=== PATIENT | female | born 1990 | race Caucasian/White ===

== ENCOUNTER 2018-12-31 10:47 | Emergency (ER) | payer BC ==
[2018-12-31] MEDS ORDERED: CYCLOBENZAPRINE 10 MG TAB ONE (12:17)
[2018-12-31] MEDS ORDERED: KETOROLAC 30 MG/ML INJ ONE (12:17)
[2018-12-31 12:48] LABS: Urine Amorphous Sediment 2+ /HPF (NONE SEEN); Urine Bacteria <20 /HPF (<20); Urine Culture Reflex Order NOT NEEDED; Urine Mucus LIGHT /HPF (NONE SEEN); Urine RBC <5 /HPF (NONE SEEN)
[2018-12-31 12:51] LABS: Urine Blood NEGATIVE (NEG); Urine Glucose NEGATIVE (NEG); Urine Protein TRACE (NEG); Urine pH 7.5 (5.0-7.0)
--- NOTE | 2018-12-31 13:06 | ER ---
Nurse's Notes [facility] Name: Zina Magana Age: 28 yrs Sex: Female : 1990 Arrival Date: 12/31/2018 Time: 10:47 Bed 26 Private MD: Diagnosis: Low back pain Presentation: 12/31 11:02 Presenting complaint: Patient states: Pt c/o mid back and low back pain x months. Pt ss reports she was supposed to have physical therapy, MRI and see pain management, but she is unable to afford it. PAtient reports that the pain has just been getting worse. Transition of care: patient was not received from another setting of care. Onset of symptoms is unknown. Risk Assessment: Do you want to hurt yourself or someone else? Patient reports no desire to harm self or others. Initial Sepsis Screen: Does the patient meet any 2 criteria? No. Patient's initial sepsis screen is negative. Does the patient have a suspected source of infection? No. Patient's initial sepsis screen is negative. Care prior to arrival: None. 11:02 Method Of Arrival: Wheelchair ss 11:02 Acuity: CLARICE 4 ss Historical: - Allergies: 11:04 No Known Allergies; ss - Home Meds: 11:04 None [Active]; ss - PMHx: 11:04 None; ss - PSHx: 11:04 None; ss - Immunization history:: Adult Immunizations up to date. - Social history:: Smoking status: Patient/guardian denies using tobacco. - Ebola Screening: : Patient denies exposure to infectious person Patient denies travel to an Ebola-affected area in the 21 days before illness onset. Screenin:57 Abuse screen: Denies threats or abuse. Denies injuries from another. Nutritional mg2 screening: No deficits noted. Tuberculosis screening: No symptoms or risk factors identified. Fall Risk None identified. Assessment: 12:15 General: Appears in no apparent distress. uncomfortable, Behavior is calm, cooperative, aj appropriate for age. Pain: Complains of pain in low back area. Neuro: Level of Consciousness is awake, alert, obeys commands, Oriented to person, place, time, situation, Appropriate for age. Respiratory: Airway is patent Respiratory effort is even, unlabored, Respiratory pattern is regular, symmetrical. Derm: Skin is intact, is healthy with good turgor, Skin is pink, warm \T\ dry. normal. Musculoskeletal: Reports pain in low back area. 12:56 Reassessment: patient verbalizes pain. provider informed. mg2 Vital Signs: 11:04 BP 109 / 71; Pulse 73; Resp 15; Temp 98.3(O); Pulse Ox 95% on R/A; Weight 99.79 kg; ss Height 5 ft. 2 in. (157.48 cm); Pain 9/10; 11:04 Body Mass Index 40.24 (99.79 kg, 157.48 cm) ED Course: 10:47 Patient arrived in ED. as 11:04 Triage completed. ss 11:04 Arm band placed on right wrist. ss 11:07 Mariam Cazares [facility]-C [facility]. snw 11:07 Karson Olmstead MD is Attending Physician. snw 11:58 Jenn Mccain, RN is Primary Nurse. aj 12:16 Urine Microscopic Only Sent. lt1 12:59 Patient has correct armband on for positive identification. mg2 13:51 No provider procedures requiring assistance completed. Patient did not have IV access aj during this emergency room visit. intact, bleeding controlled, No redness/swelling at site. Pressure dressing applied. Administered Medications: 12:04 Drug: TORadol 30 mg Route: IM; Site: right gluteus; aj 13:10 Follow up: Response: No adverse reaction; Pain is unchanged, physician notified mg2 12:05 Drug: Flexeril 10 mg Route: PO; aj 13:10 Follow up: Response: No adverse reaction; Pain is unchanged, physician notified mg2 13:10 Drug: Tylenol 1000 mg Route: PO; mg2 13:52 Follow up: Response: No adverse reaction aj Outcome: 13:05 Discharge ordered by . snw 13:51 Discharged to home ambulatory, with family. aj 13:51 Condition: good 13:51 Discharge instructions given to patient, Instructed on discharge instructions, follow up and referral plans. medication usage, Demonstrated understanding of instructions, follow-up care, medications, Prescriptions given X 2. 13:55 Patient left the ED. aj Signatures: Jenn Mccain RN RN Mariam Cazares FNP-C FNP-CsnToya Pope as Shira Hatfield RN RN Gardose, Alexy, RN RN mg2 Hernandez, Monet lt1
--- NOTE | 2018-12-31 13:06 | EDPHYS ---
Physician Documentation [facility] Name: Zina Magana Age: 28 yrs Sex: Female : 1990 Arrival Date: 12/31/2018 Time: 10:47 Bed 26 Private MD: ED Physician Karson Olmstead HPI: 12/31 12:30 This 28 yrs old Female presents to ER via Wheelchair with complaints of Back snw Pain. 12:30 The patient presents with pain that is chronic. The symptoms are located in the low snw back. Onset: The symptoms/episode began/occurred gradually, 2 month(s) ago, and became worse today, and became persistent. The pain does not radiate. Associated signs and symptoms: Pertinent negatives: abdominal pain, chest pain, constipation, vomiting, weakness. The problem was sustained when lifting patient. Severity of symptoms: At their worst the symptoms were moderate, severe. The patient has experienced similar episodes in the past, chronically. saw PCP and was to have MRI, unable to have second to cost.. no fever, no incontinence. Historical: - Allergies: 11:04 No Known Allergies; ss - Home Meds: 11:04 None [Active]; ss - PMHx: 11:04 None; ss - PSHx: 11:04 None; ss - Immunization history:: Adult Immunizations up to date. - Social history:: Smoking status: Patient/guardian denies using tobacco. - Ebola Screening: : Patient denies exposure to infectious person Patient denies travel to an Ebola-affected area in the 21 days before illness onset. ROS: 12:30 Constitutional: Negative for fever, chills, and weight loss, Eyes: Negative for injury, snw pain, redness, and discharge, ENT: Negative for injury, pain, and discharge, Neck: Negative for injury, pain, and swelling, Cardiovascular: Negative for chest pain, palpitations, and edema, Respiratory: Negative for shortness of breath, cough, wheezing, and pleuritic chest pain, Abdomen/GI: Negative for abdominal pain, nausea, vomiting, diarrhea, and constipation, : Negative for injury, bleeding, discharge, and swelling, MS/Extremity: Negative for injury and deformity, Skin: Negative for injury, rash, and discoloration, Neuro: Negative for headache, weakness, numbness, tingling, and seizure. 12:30 Back: Positive for decreased range of motion, pain at rest, pain with movement, of the low back area. Exam: 12:30 Constitutional: This is a well developed, well nourished patient who is awake, alert, snw and in no acute distress. Head/Face: Normocephalic, atraumatic. Eyes: Pupils equal round and reactive to light, extra-ocular motions intact. Lids and lashes normal. Conjunctiva and sclera are non-icteric and not injected. Cornea within normal limits. Periorbital areas with no swelling, redness, or edema. ENT: Nares patent. No nasal discharge, no septal abnormalities noted. Tympanic membranes are normal and external auditory canals are clear. Oropharynx with no redness, swelling, or masses, exudates, or evidence of obstruction, uvula midline. Mucous membranes moist. Neck: Trachea midline, no thyromegaly or masses palpated, and no cervical lymphadenopathy. Supple, full range of motion without nuchal rigidity, or vertebral point tenderness. No Meningismus. Chest/axilla: Normal chest wall appearance and motion. Nontender with no deformity. No lesions are appreciated. Cardiovascular: Regular rate and rhythm with a normal S1 and S2. No gallops, murmurs, or rubs. Normal PMI, no JVD. No pulse deficits. Respiratory: Lungs have equal breath sounds bilaterally, clear to auscultation and percussion. No rales, rhonchi or wheezes noted. No increased work of breathing, no retractions or nasal flaring. Abdomen/GI: Soft, non-tender, with normal bowel sounds. No distension or tympany. No guarding or rebound. No evidence of tenderness throughout. Skin: Warm, dry with normal turgor. Normal color with no rashes, no lesions, and no evidence of cellulitis. MS/ Extremity: Pulses equal, no cyanosis. Neurovascular intact. Full, normal range of motion. Neuro: Awake and alert, GCS 15, oriented to person, place, time, and situation. Cranial nerves II-XII grossly intact. Motor strength 5/5 in all extremities. Sensory grossly intact. Cerebellar exam normal. Normal gait. Psych: Awake, alert, with orientation to person, place and time. Behavior, mood, and affect are within normal limits. 12:30 Back: pain, that is moderate, of the low back area, ROM is painful, with all movement, CVA tenderness, is absent, muscle spasm, is appreciated in the low back area. Vital Signs: 11:04 BP 109 / 71; Pulse 73; Resp 15; Temp 98.3(O); Pulse Ox 95% on R/A; Weight 99.79 kg; ss Height 5 ft. 2 in. (157.48 cm); Pain 9/10; 11:04 Body Mass Index 40.24 (99.79 kg, 157.48 cm) ss MDM: 12:12 Patient medically screened. snw 13:06 Data reviewed: vital signs, nurses notes. Data interpreted: Pulse oximetry: on room air snw is 95 %. Interpretation: acceptable. Counseling: I had a detailed discussion with the patient and/or guardian regarding: the historical points, exam findings, and any diagnostic results supporting the discharge/admit diagnosis, lab results, the need for outpatient follow up, to return to the emergency department if symptoms worsen or persist or if there are any questions or concerns that arise at home. Special discussion: Based on the history and exam findings, there is no indication for further emergent testing or inpatient evaluation. I discussed with the patient/guardian the need to see the primary care provider for further evaluation of the symptoms. 12/31 11:06 Order name: Urine Microscopic Only; Complete Time: 12:53 snw 12/31 12:22 Order name: Urine Dipstick--Ancillary (enter results); Complete Time: 13:01 bd 12/31 12:22 Order name: Urine --Ancillary (enter results); Complete Time: 13:01 bd 12/31 11:06 Order name: Urine Test (obtain specimen); Complete Time: 12:16 snw 12/31 11:06 Order name: Urine Dipstick-Ancillary (obtain specimen); Complete Time: 12:16 snw Administered Medications: 12:04 Drug: TORadol 30 mg Route: IM; Site: right gluteus; aj 13:10 Follow up: Response: No adverse reaction; Pain is unchanged, physician notified mg2 12:05 Drug: Flexeril 10 mg Route: PO; aj 13:10 Follow up: Response: No adverse reaction; Pain is unchanged, physician notified mg2 13:10 Drug: Tylenol 1000 mg Route: PO; mg2 13:52 Follow up: Response: No adverse reaction aj Disposition: 16:58 Co-signature as Attending Physician, Karson Olmstead MD I agree with the assessment and kdr plan of care. Disposition: 12/31/18 13:05 Discharged to Home. Impression: Low back pain. - Condition is Stable. - Discharge Instructions: Back Pain, Adult, Chronic Back Pain, Musculoskeletal Pain, Back Injury Prevention, Niri-ui-Usfe, Back Exercises, Uzza-qn-Uxph, Cryotherapy, Rehydration, Adult, Heat Therapy. - Prescriptions for Motrin IB 200 mg Oral Tablet - take 2 tablet by ORAL route every 6 hours As needed as needed with food; 40 tablet. orphenadrine citrate 100 mg Oral Tablet Sustained Release - take 1 tablet by ORAL route 2 times per day As needed; 20 tablet. - Work release form, Medication Reconciliation Form, Thank You Letter, Antibiotic Education, Prescription Opioid Use form. - Follow up: Private Physician; When: 1 - 2 days; Reason: Recheck today's complaints, Continuance of care, Re-evaluation by your physician. Follow up: Emergency Department; When: As needed; Reason: Worsening of condition. Signatures: Dispatcher [employer] EDJenn Corley, RN RN Karson Smalls MD MD [facility] Mariam Cazares, REPAIRER ART OBJECTS-C REPAIRER ART OBJECTS-Shira Sands RN RN Alexy Fishman RN RN mg2 Corrections: (The following items were deleted from the chart) 13:55 13:05 12/31/2018 13:05 Discharged to Home. Impression: Low back pain. Condition is aj Stable. Forms are Medication Reconciliation Form, Thank You Letter, Antibiotic Education, Prescription Opioid Use. Follow up: Private Physician; When: 1 - 2 days; Reason: Recheck today's complaints, Continuance of care, Re-evaluation by your physician. Follow up: Emergency Department; When: As needed; Reason: Worsening of condition. snw
[2018-12-31] MEDS ORDERED: ACETAMINOPHEN 500 MG TAB ONE (13:24)
== END 2018-12-31 13:55 | disposition home or self-care (01) ==
LOC: ER 10:47
DX: M54.5 Low back pain (principal)
CPT/HCPCS: 81003; 81015; 81025; 96372; 99283

== ENCOUNTER 2019-06-28 17:50 | Emergency (ER) | payer BC ==
--- OUTSIDE RECORDS SUMMARY | 2019-06-28 17:51 | XMS REPORT ---
:1990 [facility] Address [address] [place] [address] Dr. Tong [address] [place] [id number] Care Team Providers Name Role Phone Unavailable Unavailable Unavailable Problems This patient has no known problems. Allergies, Adverse Reactions, Alerts This patient has no known allergies or adverse reactions. Medications This patient has no known medications.
--- NOTE | 2019-06-28 20:42 | EDPHYS ---
Physician Documentation [facility] Name: Zina Magana Age: 29 yrs Sex: Female : 1990 Arrival Date: 06/28/2019 Time: 17:59 Bed 12 Private MD: None, None ED Physician Torin Reno HPI: 06/28 19:32 This 29 yrs old Female presents to ER via Ambulatory with complaints of jmm Cough, Chest Pain. 19:32 The patient or guardian reports cough, described as moderate. Onset: The jmm symptoms/episode began/occurred gradually, 3 day(s) ago. Modifying factors: The symptoms are alleviated by nothing, the symptoms are aggravated by nothing. Associated signs and symptoms: Pertinent positives: sore throat, Pertinent negatives: fever. This is a 29 year old female with a history of hypothyroidism that presents to the ED with complaints of cough, sore throat for the past 3 days. Denies fever. . CHANGE OVER: 18:39 LMP 20147 Historical: - Allergies: 18:39 No Known Allergies; jl7 - Home Meds: 18:39 levothyroxine oral [Active]; jl7 - PMHx: 18:39 Hypothyroidism; jl7 - PSHx: 18:39 None; jl7 - Immunization history:: Adult Immunizations up to date. - Social history:: Smoking status: Patient denies any tobacco usage or history of. - Ebola Screening: : No symptoms or risks identified at this time. ROS: 19:32 Constitutional: Negative for fever, chills, and weight loss, Cardiovascular: Negative jmm for chest pain, palpitations, and edema. 19:32 ENT: Positive for sore throat. 19:32 Respiratory: Positive for cough. 19:32 All other systems are negative. Exam: 19:32 Constitutional: This is a well developed, well nourished patient who is awake, alert, jmm and in no acute distress. Head/Face: atraumatic. Eyes: EOMI, no conjunctival erythema appreciated ENT: Moist Mucus Membranes Neck: Trachea midline, Supple Chest/axilla: Normal chest wall appearance and motion. Cardiovascular: Regular rate and rhythm. No edema appreciated Respiratory: Normal respirations, no respiratory distress appreciated Abdomen/GI: Non distended, soft Back: Normal ROM 19:32 Skin: General appearance color normal MS/ Extremity: Moves all extremities, no obvious deformities appreciated, no edema noted to the lower extremities Neuro: Awake and alert, normal gait Psych: Behavior is normal, Mood is normal, Patient is cooperative and pleasant 19:32 ENT: Posterior pharynx: erythema, that is moderate. Vital Signs: 18:39 BP 136 / 94; Pulse 85; Resp 19 S; Temp 98.3(O); Pulse Ox 100% on R/A; Weight 104.33 kg jl7 (R); Height 5 ft. 2 in. (157.48 cm) (R); Pain 8/10; 20:57 BP 122 / 83; Pulse 87; Resp 18; Temp 98.5; Pulse Ox 99% on R/A; Pain 5/10; aa1 18:39 Body Mass Index 42.07 (104.33 kg, 157.48 cm) jl7 MDM: 19:14 Patient medically screened. papi 20:40 Data reviewed: vital signs, nurses notes. Counseling: I had a detailed discussion with radha the patient and/or guardian regarding: the historical points, exam findings, and any diagnostic results supporting the discharge/admit diagnosis, lab results, the need for outpatient follow up, to return to the emergency department if symptoms worsen or persist or if there are any questions or concerns that arise at home. ED course: Patient is alert and non toxic in appearance in the ED. patient advised to follow up with pcp and otherwise given strict return precautions. patient understood and agrees with the plan of care. . 06/28 19:31 Order name: Flu; Complete Time: 20:32 [facility] 06/28 19:31 Order name: Strep; Complete Time: 20:32 [facility] 06/28 20:16 Order name: Throat Culture EDMS Administered Medications: No medications were administered Disposition: 06/29 10:05 Co-signature as Attending Physician, Torin Reno MD I agree with the assessment and papi plan of care. Disposition: 06/28/19 20:41 Discharged to Home. Impression: Acute pharyngitis, Acute bronchitis. - Condition is Stable. - Discharge Instructions: Acute Bronchitis, Adult, Pharyngitis. - Prescriptions for Prednisone 20 mg Oral Tablet - take 3 tablet by ORAL route once daily for 5 days; 15 tablet. Zithromax Z- Joe 250 mg Oral Tablet - take 1 tablet by ORAL route as directed for 5 days Day 1 - take two (2) tablets one time. Day 2, 3, 4 , 5 take one (1) tablet once daily.; 6 tablet. Albuterol Sulfate 90 mcg/actuation - inhale 1-2 puff by INHALATION route every 4-6 hours; 1 Inhaler. - Work release form, Medication Reconciliation Form, Thank You Letter, Antibiotic Education, Prescription Opioid Use form. - Follow up: Private Physician; When: 2 - 3 days; Reason: Recheck today's complaints, Continuance of care, Re-evaluation by your physician. Signatures: Dispatcher [employer] EDMary Lou Diaz RN RN aa1 Torin Reno MD MD cha Mickail, Joel, PA PA jmm Leal, Jahala, RN RN jl7 Corrections: (The following items were deleted from the chart) 06/28 20:58 20:41 06/28/2019 20:41 Discharged to Home. Impression: Acute pharyngitis; Acute aa1 bronchitis. Condition is Stable. Forms are Medication Reconciliation Form, Thank You Letter, Antibiotic Education, Prescription Opioid Use. Follow up: Private Physician; When: 2 - 3 days; Reason: Recheck today's complaints, Continuance of care, Re-evaluation by your physician. george
--- NOTE | 2019-06-28 20:42 | ER ---
Nurse's Notes [facility] Name: Zina Magana Age: 29 yrs Sex: Female : 1990 Arrival Date: 06/28/2019 Time: 17:59 Bed 12 Private MD: None, None Diagnosis: Acute pharyngitis;Acute bronchitis Presentation: 06/28 18:37 Presenting complaint: Patient states: Productive cough x 1 days, reports chest soreness jl7 from coughing, denies fever, denies N/V/D. Transition of care: patient was not received from another setting of care. Onset of symptoms was June 27, 2019. Risk Assessment: Do you want to hurt yourself or someone else? Patient reports no desire to harm self or others. Initial Sepsis Screen: Does the patient meet any 2 criteria? No. Patient's initial sepsis screen is negative. Does the patient have a suspected source of infection? No. Patient's initial sepsis screen is negative. Care prior to arrival: None. 18:37 Method Of Arrival: Ambulatory [facility] 18:37 Acuity: CLARICE 4 jl7 Triage Assessment: 18:39 General: Appears in no apparent distress. uncomfortable, Behavior is calm, cooperative, jl7 appropriate for age. Pain: Complains of pain in chest Pain does not radiate. Pain currently is 8 out of 10 on a pain scale. Quality of pain is described as sore. Cardiovascular: Patient's skin is warm and dry. Rhythm is regular. 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 - Social history:: Smoking status: Patient denies any tobacco usage or history of. - Ebola Screening: : No symptoms or risks identified at this time. Screenin:15 Abuse screen: Denies threats or abuse. Denies injuries from another. Nutritional aa1 screening: No deficits noted. Tuberculosis screening: No symptoms or risk factors identified. Fall Risk None identified. Assessment: 19:15 General: Appears in no apparent distress. comfortable, Behavior is calm, cooperative, aa1 appropriate for age. Pain: Complains of pain in chest Quality of pain is described as aching, Pain began 1 day ago. Aggravated by cough. Neuro: Level of Consciousness is awake, alert, obeys commands, Oriented to person, place, time, situation, Moves all extremities. Full function Gait is steady, Speech is normal. Respiratory: Airway is patent Respiratory effort is even, unlabored, Respiratory pattern is regular, symmetrical. Respiratory: Reports cough that is non-productive, dry, pain with cough Breath sounds are clear bilaterally. GI: No signs and/or symptoms were reported involving the gastrointestinal system. : No signs and/or symptoms were reported regarding the genitourinary system. EENT: No signs and/or symptoms were reported regarding the EENT system. Derm: Skin is intact, is healthy with good turgor, Skin is pink, warm \T\ dry. Musculoskeletal: Capillary refill < 3 seconds. 20:57 Reassessment: Patient appears in no apparent distress at this time. Patient is alert, aa1 oriented x 3, equal unlabored respirations, skin warm/dry/pink. Discussed d/c \T\ f/u instructions with pt; denies questions or concerns at this time. Ambulatory to lobby with steady gait. Vital Signs: 18:39 BP 136 / 94; Pulse 85; Resp 19 S; Temp 98.3(O); Pulse Ox 100% on R/A; Weight 104.33 kg jl7 (R); Height 5 ft. 2 in. (157.48 cm) (R); Pain 8/10; 20:57 BP 122 / 83; Pulse 87; Resp 18; Temp 98.5; Pulse Ox 99% on R/A; Pain 5/10; aa1 18:39 Body Mass Index 42.07 (104.33 kg, 157.48 cm) jl7 ED Course: 17:59 Patient arrived in ED. mr 18:00 None, None is Private Physician. mr 18:39 Triage completed. jl7 18:39 Arm band placed on right wrist. jl7 19:11 Mir Tse PA is PHCP. keiry 19:12 Navid Lofton MD is Attending Physician. keiry 19:14 Attending Physician role handed off by Navid Lofton MD papi 19:14 Torin Reno MD is Attending Physician. [facility] 19:15 Patient has correct armband on for positive identification. Call light in reach. aa1 19:15 Pulse ox on. NIBP on. aa1 19:15 Patient maintains SpO2 saturation greater than 95% on room air. aa1 19:48 Mary Lou Gamble, RN is Primary Nurse. aa1 19:50 Flu and/or RSV swab sent to lab. Strep swab sent to lab. aa1 20:57 No provider procedures requiring assistance completed. Patient did not have IV access aa1 during this emergency room visit. Administered Medications: No medications were administered Outcome: 20:41 Discharge ordered by . radha 20:57 Discharged to home ambulatory, with family. aa1 20:57 Condition: good 20:57 Discharge instructions given to patient, family, Instructed on discharge instructions, follow up and referral plans. medication usage, Demonstrated understanding of instructions, follow-up care, medications, Prescriptions given X 3. 20:58 Patient left the ED. aa1 Signatures: Mary Lou Gamble, RN RN Torin Hansen MD MD cha Mickail, Joel, PA PA Lakisha Araiza Jahala, RN RN jl7
[2019-06-28 21:37] VITALS: BP 122/83; TEMP 98.5; O2SAT 99
== END 2019-06-28 20:58 | disposition home or self-care (01) ==
LOC: ER 17:50
DX: J40 Bronchitis, not specified as acute or chronic (principal); J02.9 Acute pharyngitis, unspecified; E03.9 Hypothyroidism, unspecified
CPT/HCPCS: 87070; 87081; 87804; 99284

== ENCOUNTER 2020-01-11 19:50 | Emergency (ER) | payer BC ==
--- OUTSIDE RECORDS SUMMARY | 2020-01-11 19:52 | XMS REPORT | Continuity of Care Document ---
:[address] [facility] Address [address] [place] [address] Dr. Tong [address] [place] [id number] Care Team Providers Name Role Phone Unavailable Unavailable Unavailable Problems This patient has no known problems. Allergies, Adverse Reactions, Alerts This patient has no known allergies or adverse reactions. Medications This patient has no known medications. Procedures This patient has no known procedures. Results This patient has no known results.
[2020-01-11] MEDS ORDERED: ACETAMINOPHEN 500 MG TAB ONE (21:22)
[2020-01-11 21:35] LABS: Urine Blood NEGATIVE (NEG); Urine Glucose NEGATIVE (NEG); Urine Protein NEGATIVE (NEG); Urine pH 6.5 (5.0-7.0)
--- NOTE | 2020-01-11 23:11 | ER ---
Nurse's Notes [facility] Name: Zina Magana Age: 29 yrs Sex: Female : 1990 Arrival Date: 01/11/2020 Time: 19:52 Bed 15 Private MD: Diagnosis: Acute sinusitis Presentation: 01/10 20:02 Chief complaint: Patient states: Chills, POWELL, sinus pain, lightheaded, sore throat for 3 ll1 days. No fever at home. + fatigue and body aches. No N/V/D. No appetite. Taste is off. Coronavirus screen: Client denies travel out of the [place] in the last 14 days. chills, fatigue, headache, sore throat, loss of taste or smell, Client presents with at least one sign or symptom that may indicate coronavirus-19. Standard/surgical mask placed on the client. The client reports previous COVID testing was negative. Ebola Screen: Patient denies travel to an Ebola-affected area in the 21 days before illness onset. Initial Sepsis Screen: Does the patient meet any 2 criteria? HR > 90 bpm. Risk Assessment: Do you want to hurt yourself or someone else? Patient reports no desire to harm self or others. Onset of symptoms was January 09, 2020. 20:02 Method Of Arrival: Ambulatory ll1 20:02 Acuity: CLARICE 3 ll1 23:33 Initial Sepsis Screen: Does the patient have a suspected source of infection? No. mt2 Patient's initial sepsis screen is negative. Triage Assessment: 21:00 Headache History: Denies prior headaches. General: Appears in no apparent distress. mt2 Pain: Also complains of. Pain: Pain Pain began gradually. 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 - Social history:: Smoking status: Patient denies any tobacco usage or history of. Patient/guardian denies using alcohol, street drugs, tobacco products. Screenin:07 Abuse screen: Denies threats or abuse. Nutritional screening: No deficits noted. bb Tuberculosis screening: No symptoms or risk factors identified. Fall Risk None identified. Assessment: 21:07 General: Appears in no apparent distress. Behavior is calm, cooperative. General: bb Reports fever for 2-3 days, feeling ill for 2-3 days, fatigue for 2-3 days. Neuro: Level of Consciousness is awake, alert, obeys commands, Oriented to person, place, time, situation. Cardiovascular: Capillary refill < 3 seconds Patient's skin is warm and dry. Respiratory: Airway is patent Respiratory effort is even, unlabored, Respiratory pattern is regular. GI: Abdomen is obese. Derm: Skin is pink, warm \T\ dry. Musculoskeletal: Circulation, motion, and sensation intact. 22:00 Reassessment: Patient and/or family updated on plan of care and expected duration. Pain mt2 level reassessed. Patient is alert, oriented x 3, equal unlabored respirations, skin warm/dry/pink. General: Appears in no apparent distress. comfortable, Behavior is cooperative. Pain: Denies pain. 23:31 Reassessment: Patient and/or family updated on plan of care and expected duration. Pain mt2 level reassessed. Patient is alert, oriented x 3, equal unlabored respirations, skin warm/dry/pink. Patient states symptoms have improved. General: Appears in no apparent distress. Behavior is cooperative. Vital Signs: 20:02 BP 129 / 104; Pulse 99; Resp 18; Temp 99.2; Pulse Ox 99% ; Weight 104.33 kg; Height 5 ll1 ft. 2 in. (157.48 cm); Pain 4/10; 22:10 BP 139 / 94; Pulse 72; Resp 1; Temp 98.5; Pulse Ox 94% on R/A; Pain 0/10; mt2 20:02 Body Mass Index 42.07 (104.33 kg, 157.48 cm) ll1 ED Course: 19:52 Patient arrived in ED. cl3 20:06 Triage completed. ll1 20:06 Arm band placed on Patient notified of wait time. ll1 20:52 Gloria Gregorio RN is Primary Nurse. mt2 20:52 Torin Garcia PA is PHCP. cp 20:55 Jackson Sanders MD is Attending Physician. cp 21:07 Patient has correct armband on for positive identification. Bed in low position. Call bb light in reach. Warm blanket given. 23:31 No provider procedures requiring assistance completed. Patient did not have IV access mt2 during this emergency room visit. Administered Medications: 21:26 Drug: Tylenol 1000 mg Route: PO; bb 22:20 Follow up: Response: No adverse reaction; Temperature is decreased; Pain is decreased mt2 Outcome: 23:11 Discharge ordered by . larry 23:31 Discharged to home ambulatory. mt2 23:31 Condition: good 23:31 Discharge instructions given to patient, Instructed on discharge instructions, follow up and referral plans. Demonstrated understanding of instructions, follow-up care. 23:34 Patient left the ED. mt2 Addendum: 01/13/2020 18:23 Addendum: COVID-19 Result: Positive result giiven to ED physician to notify pt. a a5 Physician: Torin Reno MD Physician was able to contact pt and pt was notified of positive COVID-19 swab result. Physician answered pt questions. Signatures: Aliza Funes RN RN bb Eri Fleming RN RN aa5 Torin Garcia PA PA Robles [place] 3 Jose Roberto Hassan RN RN ll1 Gloria Gregorio RN RN mt2
--- NOTE | 2020-01-11 23:12 | EDPHYS ---
Physician Documentation [facility] Name: Zina Magana Age: 29 yrs Sex: Female : 1990 Arrival Date: 01/11/2020 Time: 19:52 Bed 15 Private MD: ED Physician Jackson Sanders HPI: 01/10 21:05 This 29 yrs old Female presents to ER via Ambulatory with complaints of cp Headache, Chillls. 21:05 The patient complains of pain to the forehead. The patient describes the headache as cp aching. 21:06 Onset: The symptoms/episode began/occurred 3 day(s) ago. Associated signs and symptoms: cp Pertinent positives: fever, body aches, sore throat. 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 - Social history:: Smoking status: Patient denies any tobacco usage or history of. Patient/guardian denies using alcohol, street drugs, tobacco products. ROS: 21:10 Constitutional: Positive for body aches, fatigue, Negative for fever, poor PO intake. cp 21:10 ENT: Positive for sinus congestion, sore throat, Negative for drainage from ear(s), ear cp pain, difficulty swallowing, difficulty handling secretions. 21:10 Neck: Negative for pain with movement, pain at rest, stiffness. 21:10 Cardiovascular: Negative for chest pain, palpitations. 21:10 Respiratory: Negative for cough, shortness of breath, wheezing. 21:10 Abdomen/GI: Negative for abdominal pain, nausea, vomiting, and diarrhea. 21:10 Skin: Negative for rash. 21:10 Neuro: Positive for headache, Negative for altered mental status, weakness. Exam: 21:20 Constitutional: The patient appears in no acute distress, alert, awake, non-toxic, well cp developed, well nourished, obese. 21:20 Head/Face: Normocephalic, atraumatic. cp 21:20 Eyes: Periorbital structures: appear normal, Conjunctiva: normal, no exudate, no injection, Lids and lashes: appear normal, bilaterally. 21:20 ENT: External ear(s): are unremarkable, Ear canal(s): are normal, clear, TM's: dullness, bilaterally, Nose: is normal, Mouth: Lips: moist, Oral mucosa: moist, Posterior pharynx: Airway: no evidence of obstruction, patent, Tonsils: no enlargement, no exudate, Uvula: midline, swelling, is not appreciated, erythema, that is mild, exudate, is not appreciated. 21:20 Neck: ROM/movement: Meningeal signs: are not present, nuchal rigidity, is not appreciated, Lymph nodes: no appreciated lymphadenopathy. 21:20 Chest/axilla: Inspection: normal. 21:20 Cardiovascular: Rate: normal, Rhythm: regular. 21:20 Respiratory: the patient does not display signs of respiratory distress, Respirations: normal, no use of accessory muscles, no retractions, labored breathing, is not present, Breath sounds: are clear throughout, no decreased breath sounds, no stridor, no wheezing. 21:20 Abdomen/GI: Exam negative for discomfort, distension, guarding, Inspection: abdomen appears normal. 21:20 Back: CVA tenderness, is absent. 21:20 Skin: no rash present. 21:20 Neuro: Orientation: to person, place \T\ time. Mentation: is normal, Motor: moves all fours, strength is normal. Vital Signs: 20:02 BP 129 / 104; Pulse 99; Resp 18; Temp 99.2; Pulse Ox 99% ; Weight 104.33 kg; Height 5 ll1 ft. 2 in. (157.48 cm); Pain 4/10; 22:10 BP 139 / 94; Pulse 72; Resp 1; Temp 98.5; Pulse Ox 94% on R/A; Pain 0/10; mt2 20:02 Body Mass Index 42.07 (104.33 kg, 157.48 cm) ll1 MDM: 20:53 Patient medically screened. cp 21:30 Differential diagnosis: meningitis, migraine, tension headache, viral illness, cp influenza, strep throat, COVID-19. 23:10 Data reviewed: vital signs, nurses notes, lab test result(s), and as a result, I will cp discharge patient. 23:10 Counseling: I had a detailed discussion with the patient and/or guardian regarding: the cp historical points, exam findings, and any diagnostic results supporting the discharge/admit diagnosis, lab results, to return to the emergency department if symptoms worsen or persist or if there are any questions or concerns that arise at home. 23:10 ED course: VSS. Patient instructed to quarantine while awaiting results of COVID-19 cp testing. Continue symptomatic treatment. 01/10 21:08 Order name: COVID-19 cp 01/10 21:08 Order name: Flu; Complete Time: 22:24 cp 01/10 21:08 Order name: Strep; Complete Time: 22:24 cp 01/10 21:32 Order name: Urine --Ancillary (enter results); Complete Time: 22:24 tt3 01/10 21:32 Order name: Urine Dipstick--Ancillary (enter results); Complete Time: 22:24 tt3 01/10 22:24 Interpretation: Normal except: UESTR 1+. cp 01/10 21:53 Order name: Throat Culture EDDE 01/10 21:08 Order name: Document PUI#; Complete Time: 21:26 cp 01/10 21:08 Order name: Droplet/Contact Precautions; Complete Time: 21:26 cp 01/10 21:08 Order name: Labs collected and sent; Complete Time: 21:26 cp 01/10 21:08 Order name: Notify Health Dept [phone]/ ; Complete Time: 21:26 cp 01/10 21:08 Order name: O2 Per Protocol; Complete Time: 21:26 cp 01/10 22:26 Order name: Urine Microscopic Only cp 01/10 22:26 Order name: Urine Culture 01/10 21:08 Order name: Urine Dipstick-Ancillary (obtain specimen); Complete Time: 21:26 cp 01/10 21:08 Order name: Urine Test (obtain specimen); Complete Time: 21:26 cp Administered Medications: 21:26 Drug: Tylenol 1000 mg Route: PO; bb 22:20 Follow up: Response: No adverse reaction; Temperature is decreased; Pain is decreased mt2 Disposition: 23:25 Chart complete. 01/11 04:27 Co-signature as Attending Physician, Jackson Sanders MD I agree with the assessment and tw4 plan of care. Disposition: 01/11/20 23:11 Discharged to Home. Impression: Acute sinusitis. - Condition is Stable. - Discharge Instructions: Sinusitis, Adult. - Medication Reconciliation Form, Thank You Letter, Antibiotic Education, Prescription Opioid Use, Work release form form. - Follow up: Private Physician; When: 2 - 3 days; Reason: Worsening of condition. - Problem is new. - Symptoms have improved. Signatures: Dispatcher [employer] EDAliza Torres RN RN bb Torin Garcia PA PA cp Wadley, Terrence, MD MD tw4 Jose Roberto Hassan RN RN ll1 Gloria Gregorio RN RN mt2 Corrections: (The following items were deleted from the chart) 01/10 23:34 23:11 01/11/2020 23:11 Discharged to Home. Impression: Acute sinusitis. Condition is mt2 Stable. Forms are Medication Reconciliation Form, Thank You Letter, Antibiotic Education, Prescription Opioid Use. Follow up: Private Physician; When: 2 - 3 days; Reason: Worsening of condition. Problem is new. Symptoms have improved. cp
[2020-01-11 23:21] LABS: Urine Bacteria 20-50 /HPF (<20); Urine Culture Reflex Order NOT NEEDED; Urine RBC <5 /HPF (NONE SEEN)
[2020-01-12 00:28] VITALS: BP 139/94; TEMP 98.5; O2SAT 94
== END 2020-01-11 23:34 | disposition home or self-care (01) ==
LOC: ER 19:50
DX: U07.1 COVID-19 (principal); J01.90 Acute sinusitis, unspecified
CPT/HCPCS: 87070; 87088; 87086; 81025; 87081; 87804 ×2; 99283; U0002; 81003; 81015

== ENCOUNTER 2020-01-15 11:30 | Emergency (ER) | payer BC, OTHER ==
[2020-01-15] MEDS ORDERED: ONDANSETRON 4 MG/2 ML VIAL ONE ×2 (12:21→14:43)
[2020-01-15] MEDS ORDERED: NA CHLORIDE 0.9% 1,000 ML ONE (12:22)
[2020-01-15 12:31] LABS: Urine Blood NEGATIVE (NEG); Urine Glucose NEGATIVE (NEG); Urine Protein NEGATIVE (NEG); Urine Specific Gravity 1.025 (1.005-1.030); Urine pH 6.5 (5.0-7.0)
[2020-01-15 12:44] LABS: Urine Bacteria 20-50 /HPF (<20); Urine RBC <5 /HPF (NONE SEEN)
[2020-01-15 12:45] LABS: Urine Culture Reflex Order REFLEXED; Urine Mucus LIGHT /HPF (NONE SEEN); Urine Trichomonas PRESENT (NONE SEEN)
[2020-01-15 12:50] LABS: Absolute Lymphocytes (CBC) 1.4 K/uL (0.7-4.9); Basophils % 0.5 % (0-1.3); RBC Red Blood Cell Count 4.89 M/uL (3.86-4.86)
--- NOTE | 2020-01-15 12:57 | RAD REPORT ---
EXAM DESCRIPTION: CT - Stone Protocol - 01/15/2020 12:47 pm CLINICAL HISTORY: Flank pain. right flank pain COMPARISON: No comparisons TECHNIQUE: Axial images were obtained without oral or IV contrast. Lack of contrast limits solid org an and vascular assessment. The [id number] spans the entirety of the system partially obscuring uppermost abdomen and lung bases. Coronal reformatted images were obtained and reviewed. All CT scans are performed using dose optimization technique as appropriate and may include automated exposure control or mA/KV adjustment according to patient size. FINDINGS: Small airspace opacity is present in the medial left lung base likely representing pneumon ia. Imaged portions of the liver and spleen show no suspicious findings on non-contrast imaging. The panc reas and adrenal glands are normal. No pathologic lymphadenopathy in the abdomen or pelvis. 6 mm stone is present in the inferior calyx left kidney. Punctate stone is present mid pole posterior right renal calyx. No bowel obstruction, free air, free fluid or abscess. Normal appendix noted. No significant bony abnormality. IMPRESSION: Small air space opacity in the medial left lung base most compatible with infiltrate/ pn eumonia. Bilateral nephrolithiasis without hydronephrosis.
[2020-01-15 13:00] LABS: ALT/SGPT 59 U/L (12-78); AST/SGOT 30 U/L (15-37); Albumin 3.6 g/dL (3.4-5.0); Alkaline Phosphatase 86 U/L (45-117); BUN Blood Urea Nitrogen 9 mg/dL (7-18); Bicarbonate 26 mmol/L (21-32); Bilirubin Direct < 0.1 mg/dL (0-0.2); Bilirubin Total 0.4 mg/dL (0.2-1.0); Glucose Level 126 mg/dL (74-106); Lipase 67 U/L (73-393); Potassium 3.5 mmol/L (3.5-5.1); Protein, Total 7.6 g/dL (6.4-8.2); Sodium Level 138 mmol/L (136-145)
--- OUTSIDE RECORDS SUMMARY | 2020-01-15 13:25 | XMS REPORT | Continuity of Care Document ---
:1990 Author Organization [facility] Address [address] [place] [address] Dr. Tong [address] [place] [id number] Care Team Providers Name Role Phone Unavailable Unavailable Unavailable Problems This patient has no known problems. Allergies, Adverse Reactions, Alerts This patient has no known allergies or adverse reactions. Medications This patient has no known medications. Procedures This patient has no known procedures. Results This patient has no known results.
[2020-01-15] MEDS ORDERED: MORPHINE 2 MG/ML SYR ONE (13:27)
--- NOTE | 2020-01-15 14:26 | ER ---
Nurse's Notes [facility] Name: Zina Magana Age: 29 yrs Sex: Female : 1990 Arrival Date: 01/15/2020 Time: 11:33 Bed 20 Private MD: Diagnosis: Vomiting;Pneumonia;Trichomoniasis;Urinary tract infection, site not specified Presentation: 01/14 11:46 Chief complaint: Chief complaint: N/V and right sided abdominal pain x 2 days. Cough, hb headache, malaise, and fatigue x 1 week. Not tolerating fluids. Pt is COVID +. 11:46 Coronavirus screen: cough unrelated to allergies, fatigue, fever, headache, nausea, hb vomiting. Ebola Screen: No symptoms or risks identified at this time. Initial Sepsis Screen: Does the patient meet any 2 criteria? No. Patient's initial sepsis screen is negative. Does the patient have a suspected source of infection? No. Patient's initial sepsis screen is negative. Risk Assessment: Do you want to hurt yourself or someone else? Patient reports no desire to harm self or others. Onset of symptoms was January 10, 2020. 11:46 Method Of Arrival: Wheelchair hb 11:46 Acuity: CLARICE 3 hb Historical: - Allergies: 11:48 No Known Allergies; hb - PMHx: 11:48 Hypothyroidism; hb - PSHx: 11:48 None; hb - Immunization history:: Adult Immunizations up to date. - Social history:: Smoking status: Patient denies any tobacco usage or history of. Screenin:47 Abuse screen: Denies threats or abuse. Denies injuries from another. Nutritional ph screening: No deficits noted. Tuberculosis screening: No symptoms or risk factors identified. Fall Risk None identified. Assessment: 12:46 General: Appears in no apparent distress. comfortable, obese, well groomed, Behavior is ph calm, cooperative, appropriate for age, Reports chills for Denies fever. Pain: Complains of pain in anterior aspect of right lateral abdomen and right lower quadrant. Neuro: Level of Consciousness is awake, alert, obeys commands, Oriented to person, place, time, situation. Cardiovascular: Capillary refill < 3 seconds in bilateral fingers Patient's skin is warm and dry. Respiratory: Airway is patent Respiratory effort is even, unlabored, Respiratory pattern is regular, symmetrical, Denies shortness of breath. GI: Abdomen is non-distended, Reports lower abdominal pain, nausea, Patient currently denies diarrhea, vomiting. Derm: Skin is intact, Skin is pink, warm \T\ dry. Musculoskeletal: Circulation, motion, and sensation intact. Range of motion: intact in all extremities. 13:45 Reassessment: Patient appears in no apparent distress at this time. Patient and/or ph family updated on plan of care and expected duration. Pain level reassessed. Patient is alert, oriented x 3, equal unlabored respirations, skin warm/dry/pink. 14:51 Reassessment: Patient appears in no apparent distress at this time. Patient and/or ph family updated on plan of care and expected duration. Pain level reassessed. Patient is alert, oriented x 3, equal unlabored respirations, skin warm/dry/pink. D/C pending completion of IV fluids. Vital Signs: 11:46 BP 142 / 92; Pulse 93; Resp 18; Temp 99(TE); Pulse Ox 100% on R/A; Pain 8/10; hb 12:48 BP 133 / 99; Pulse 91; Resp 18; Pulse Ox 99% on R/A; ph 14:00 BP 136 / 104; Pulse 85; Resp 18; Pulse Ox 98% on R/A; ph 15:07 BP 138 / 98; Pulse 87; Resp 18; Temp 98.3(O); Pulse Ox 99% on R/A; ph ED Course: 11:33 Patient arrived in ED. fj1 11:42 [facility] 11:42 Karson Olmstead MD is Attending Physician. [facility] 11:48 Triage completed. hb 11:48 Arm band placed on. hb 12:06 Nimisha Magana, JULIANNA is Primary Nurse. ph 12:25 Initial lab(s) drawn, by me, sent to lab. Inserted saline lock: 22 gauge in right ph antecubital area, using aseptic technique. Blood collected. 12:47 Patient has correct armband on for positive identification. Placed in gown. Bed in low ph position. Call light in reach. Side rails up X 1. Pulse ox on. NIBP on. Door closed. Noise minimized. Lights dimmed. Warm blanket given. 14:04 PO fluids given. Verbal reassurance given. Diet:. Diet: Tolerated well. jp3 15:08 No provider procedures requiring assistance completed. IV discontinued, intact, ph bleeding controlled, No redness/swelling at site. Pressure dressing applied. Administered Medications: 12:35 Drug: Zofran (Ondansetron) 4 mg Route: IVP; Site: right antecubital; ph 13:00 Follow up: Response: No adverse reaction; Nausea is decreased ph 12:35 Drug: NS 0.9% 1000 ml Route: IV; Rate: 1 bolus; Site: right antecubital; ph 15:07 Follow up: Response: No adverse reaction; IV Status: Completed infusion; IV Intake: ph 1000ml 13:31 Drug: morphine 2 mg Route: IVP; Site: right antecubital; ph 14:17 Follow up: Response: No adverse reaction ph 14:44 Drug: Zofran (Ondansetron) 4 mg Route: IVP; Site: right antecubital; ph 14:52 Follow up: Response: No adverse reaction ph Intake: 15:07 IV: 1000ml; Total: 1000ml. ph Outcome: 14:26 Discharge ordered by MD. vazquez 15:08 Discharged to home ambulatory. ph 15:08 Condition: good 15:08 Discharge instructions given to patient, Instructed on discharge instructions, follow up and referral plans. medication usage, Demonstrated understanding of instructions, follow-up care, medications, Prescriptions given X 4. 15:09 Patient left the ED. ph Signatures: Mir Tse PA PA jmm Hall, Patricia, RN RN Veronica Woodard RN RN Jeet Gatica jp3 Scott Espinoza fj1 Corrections: (The following items were deleted from the chart) 11:48 11:46 Chief complaint: hb hb
--- NOTE | 2020-01-15 14:27 | EDPHYS ---
Physician Documentation [facility] Name: Zina Magana Age: 29 yrs Sex: Female : 1990 Arrival Date: 01/15/2020 Time: 11:33 Bed 20 Private MD: ED Physician Karson Olmstead HPI: 01/14 11:54 This 29 yrs old Female presents to ER via Wheelchair with complaints of jmm COVID+, General Weakness, Nausea/Vomiting. 11:54 The patient presents to the emergency department with nausea, vomiting, abdominal pain. jmm Onset: The symptoms/episode began/occurred gradually, 5 day(s) ago. The symptoms are aggravated by nothing. The symptoms are alleviated by nothing. This is a 29 year old female with a history of hypothyroidism that presents to the ED with complaints of vomiting and decreased oral intake. Patient was recently diagnosed with covid 19. Patient also complains of right flank pain. Denies shortness of breath, diarrhea. . Historical: - Allergies: 11:48 No Known Allergies; hb - PMHx: 11:48 Hypothyroidism; hb - PSHx: 11:48 None; hb - Immunization history:: Adult Immunizations up to date. - Social history:: Smoking status: Patient denies any tobacco usage or history of. ROS: 11:54 Constitutional: Negative for fever, chills, and weight loss, Cardiovascular: Negative jmm for chest pain, palpitations, and edema, Respiratory: Negative for shortness of breath, cough, wheezing, and pleuritic chest pain. 11:54 MS/Extremity: Negative for injury and deformity, Skin: Negative for injury, rash, and discoloration, Neuro: Negative for headache, weakness, numbness, tingling, and seizure. 11:54 Abdomen/GI: Positive for vomiting. 11:54 Back: Positive for flank pain, on the right. 11:54 All other systems are negative. Exam: 11:54 Constitutional: This is a well developed, well nourished patient who is awake, alert, jmm and in no acute distress. Head/Face: atraumatic. Eyes: EOMI, no conjunctival erythema appreciated ENT: Moist Mucus Membranes Neck: Trachea midline, Supple Chest/axilla: Normal chest wall appearance and motion. Cardiovascular: Regular rate and rhythm. No edema appreciated Respiratory: Normal respirations, no respiratory distress appreciated 11:54 Skin: General appearance color normal MS/ Extremity: Moves all extremities, no obvious deformities appreciated, no edema noted to the lower extremities Neuro: Awake and alert, normal gait Psych: Behavior is normal, Mood is normal, Patient is cooperative and pleasant 11:54 Abdomen/GI: Inspection: abdomen appears normal, Bowel sounds: normal, Palpation: soft, in all quadrants. 11:54 Back: CVA tenderness, that is mild, is noted on the right. Vital Signs: 11:46 BP 142 / 92; Pulse 93; Resp 18; Temp 99(TE); Pulse Ox 100% on R/A; Pain 8/10; hb 12:48 BP 133 / 99; Pulse 91; Resp 18; Pulse Ox 99% on R/A; ph 14:00 BP 136 / 104; Pulse 85; Resp 18; Pulse Ox 98% on R/A; ph 15:07 BP 138 / 98; Pulse 87; Resp 18; Temp 98.3(O); Pulse Ox 99% on R/A; ph MDM: 11:54 Patient medically screened. [facility] 14:24 Data reviewed: vital signs, EMS record. Counseling: I had a detailed discussion with george the patient and/or guardian regarding: the historical points, exam findings, and any diagnostic results supporting the discharge/admit diagnosis, the need for outpatient follow up, to return to the emergency department if symptoms worsen or persist or if there are any questions or concerns that arise at home. ED course: Patient is alert and non toxic in appearance in the ED. Able to tolerate PO. Patient is advised to follow up with pcp and otherwise given strict return precautions. Patient understood and agrees with the plan of care. . 01/14 11:57 Order name: Basic Metabolic Panel [facility] 01/14 11:57 Order name: CBC with Diff [facility] 01/14 11:57 Order name: Hepatic Function [facility] 01/14 11:57 Order name: Lipase [facility] 01/14 12:07 Order name: Urine Microscopic Only ph 01/14 12:14 Order name: Urine Dipstick--Ancillary (enter results) 01/14 12:14 Order name: Urine --Ancillary (enter results) hb 01/14 12:31 Order name: Urine --Ancillary; Complete Time: 13:19 [facility] 01/14 12:31 Order name: Urine Dipstick-Ancillary; Complete Time: 13:19 [facility] 01/14 12:45 Order name: Urine Microscopic Only; Complete Time: 13:19 [facility] 01/14 12:51 Order name: CBC with Automated Diff; Complete Time: 13:19 [facility] 01/14 13:00 Order name: Basic Metabolic Panel; Complete Time: 13:19 [facility] 01/14 13:00 Order name: Liver (Hepatic) Function; Complete Time: 13:19 [facility] 01/14 13:00 Order name: Lipase; Complete Time: 13:19 [facility] 01/14 11:57 Order name: IV Saline Lock; Complete Time: 12:36 [facility] 01/14 11:57 Order name: Labs collected and sent; Complete Time: 12:36 [facility] 01/14 11:57 Order name: Urine Dipstick-Ancillary (obtain specimen); Complete Time: 12:07 [facility] 01/14 11:58 Order name: Urine Test (obtain specimen); Complete Time: 12:07 [facility] 01/14 12:09 Order name: CT Stone Protocol [facility] 01/14 12:58 Order name: CT; Complete Time: 13:19 [facility] 01/14 13:47 Order name: Misc. Order: PO challenge; Complete Time: 14:03 [facility] Administered Medications: 12:35 Drug: Zofran (Ondansetron) 4 mg Route: IVP; Site: right antecubital; ph 13:00 Follow up: Response: No adverse reaction; Nausea is decreased ph 12:35 Drug: NS 0.9% 1000 ml Route: IV; Rate: 1 bolus; Site: right antecubital; ph 15:07 Follow up: Response: No adverse reaction; IV Status: Completed infusion; IV Intake: ph 1000ml 13:31 Drug: morphine 2 mg Route: IVP; Site: right antecubital; ph 14:17 Follow up: Response: No adverse reaction ph 14:44 Drug: Zofran (Ondansetron) 4 mg Route: IVP; Site: right antecubital; ph 14:52 Follow up: Response: No adverse reaction ph Disposition: 01/15 07:58 Co-signature as Attending Physician, Karson Olmstead MD I agree with the assessment and kdr plan of care. Disposition: 01/15/20 14:26 Discharged to Home. Impression: Vomiting, Pneumonia, Trichomoniasis, Urinary tract infection, site not specified. - Condition is Stable. - Discharge Instructions: Dysuria, Nausea and Vomiting, Adult, Community-Acquired Pneumonia, Adult, Trichomoniasis. - Prescriptions for Zofran ODT 4 mg Oral tablet,disintegrating - place 1 tablet by TRANSLINGUAL route every 4-6 hours; 20 tablet. Flagyl 500 mg Oral Tablet - take 1 tablet by ORAL route every 12 hours for 7 days; 14 tablet. Levaquin 750 mg Oral Tablet - take 1 tablet by ORAL route once daily for 10 days; 10 tablet. Ultracet 37.5- 325 mg Oral Tablet - take 1 tablet by ORAL route every 6 hours - for up to 5 days; do not exceed 8 tablets per day.; 20 tablet. - Medication Reconciliation Form, Thank You Letter, Antibiotic Education, Prescription Opioid Use form. - Follow up: Private Physician; When: 2 - 3 days; Reason: Recheck today's complaints, Continuance of care, Re-evaluation by your physician. Signatures: Dispatcher [employer] EDMS Karson Olmstead MD MD kdr Mickail, Joel, PA PA Nimisha Hillman, RN RN ph Veronica Woodard RN RN Corrections: (The following items were deleted from the chart) 01/14 15:09 14:26 01/15/2020 14:26 Discharged to Home. Impression: Vomiting; Pneumonia; ph Trichomoniasis; Urinary tract infection, site not specified. Condition is Stable. Forms are Medication Reconciliation Form, Thank You Letter, Antibiotic Education, Prescription Opioid Use. Follow up: Private Physician; When: 2 - 3 days; Reason: Recheck today's complaints, Continuance of care, Re-evaluation by your physician. george
[2020-01-15 15:19] VITALS: BP 138/98; TEMP 98.3; O2SAT 99
== END 2020-01-15 15:09 | disposition home or self-care (01) ==
LOC: ER 11:30
DX: U07.1 COVID-19 (principal); R11.2 Nausea with vomiting, unspecified; J12.89 Other viral pneumonia; A59.9 Trichomoniasis, unspecified; N39.0 Urinary tract infection, site not specified
CPT/HCPCS: 87088; 85025; 87086; 80048; 36415; 81025; 80076; 83690; 76377; 74176; J2270; J7030; J2405 ×2; 81003; 81015; 96361; 96374; 96375; 99284

== ENCOUNTER 2020-11-12 07:37 | Emergency (ER) | payer BC ==
--- OUTSIDE RECORDS SUMMARY | 2020-11-12 07:41 | XMS REPORT | Continuity of Care Document ---
:1990 Author Organization [facility] t Address [address] [place] [address] Care Team Providers Name Role Phone Diana Soto DO Attending Clinician Problems This patient has no known problems. Allergies, Adverse Reactions, Alerts This patient has no known allergies or adverse reactions. Medications This patient has no known medications. Procedures This patient has no known procedures. Encounters Start End Encounter Admission Attending Care Care Encounter Source Date/Time Date/Time Type Type Clinicians Facility Department ID 2020-11-06 2020-11-07 Emergency Charles FLMARCOS [id number] 20:52:00 01:33:00 Mishel [place] [id number] [place] [id number] Marty [id number] Results This patient has no known results.
[2020-11-12] MEDS ORDERED: LIDOCAINE VISCOUS 2% SOLN 15 ML UDC ONE (09:08)
[2020-11-12] MEDS ORDERED: TRAMADOL HCL 50 MG TAB ONE (09:22)
[2020-11-12] MEDS ORDERED: PHENAZOPYRIDINE 100MG TAB PO ONE (09:22)
[2020-11-12 09:27] LABS: Urine Specific Gravity <=1.005 (1.005-1.030)
[2020-11-12 09:28] LABS: Urine Blood Negative (Negative); Urine Glucose Negative (Negative); Urine Protein Negative (Negative)
--- NOTE | 2020-11-12 10:41 | ER ---
Nurse's Notes [facility] Name: Zina Magana Age: 30 yrs Sex: Female : 1990 Arrival Date: 11/12/2020 Time: 07:41 Bed 30 Private MD: Diagnosis: Urinary tract infection, site not specified;Periurethral irritation, fungal infection Presentation: 11/12 07:45 Chief complaint: Patient states: "I am fighting a really bad UTI. I have been on 2 jd3 different medications and been to 3 ER's in the past 2 weeks. I am having so much pain even to pee.". Coronavirus screen: At this time, the client does not indicate any symptoms associated with coronavirus-19. Ebola Screen: Patient negative for fever greater than or equal to 101.5 degrees Fahrenheit, and additional compatible Ebola Virus Disease symptoms. Initial Sepsis Screen: Does the patient meet any 2 criteria? No. Patient's initial sepsis screen is negative. Does the patient have a suspected source of infection? No. Patient's initial sepsis screen is negative. Risk Assessment: Do you want to hurt yourself or someone else? Patient reports no desire to harm self or others. Onset of symptoms was November 01, 2020. 07:45 Method Of Arrival: Ambulatory j 07:45 Acuity: CLARICE 3 jd3 07:48 Note Tylenol # 3 taken at 3 am with no relief. 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 - Social history:: Smoking status: Patient denies any tobacco usage or history of. Screenin:38 Abuse screen: Denies threats or abuse. Denies injuries from another. Nutritional ph screening: No deficits noted. Tuberculosis screening: No symptoms or risk factors identified. Fall Risk None identified. Assessment: 09:00 General: Appears in no apparent distress. uncomfortable, Behavior is cooperative, ph appropriate for age, Denies fever. Pain: Complains of pain in right labia minora and left labia minora. Neuro: Level of Consciousness is awake, alert, obeys commands, Oriented to person, place, time, situation. Cardiovascular: Capillary refill < 3 seconds in bilateral fingers Patient's skin is warm and dry. Respiratory: Airway is patent Respiratory effort is even, unlabored. : Reports burning with urination. Derm: Skin is intact, Skin is pink, warm \\T\\ dry. Musculoskeletal: Circulation, motion, and sensation intact. Range of motion: intact in all extremities. 10:00 Reassessment: Patient appears in no apparent distress at this time. Patient and/or ph family updated on plan of care and expected duration. Pain level reassessed. Patient is alert, oriented x 3, equal unlabored respirations, skin warm/dry/pink. Vital Signs: 07:49 BP 131 / 75; Pulse 80; Resp 17 S; Temp 97.6(TE); Pulse Ox 97% on R/A; Weight 107.5 kg jd3 (R); Height 5 ft. 2 in. (157.48 cm) (R); Pain 10/10; 09:00 BP 127 / 89; Pulse 78; Resp 18; Pulse Ox 98% on R/A; ph 10:00 BP 128 / 90; Pulse 76; Resp 16; Temp 97.9; Pulse Ox 99% on R/A; ph 07:49 Body Mass Index 43.35 (107.50 kg, 157.48 cm) jd3 ED Course: 07:41 Patient arrived in ED. mr 07:47 Triage completed. jd3 07:50 Arm band placed on. jd3 08:31 Karson Olmstead MD is Attending Physician. kdr 08:36 Nimisha Magana, RN is Primary Nurse. ph 09:38 Patient has correct armband on for positive identification. Placed in gown. Bed in low ph position. Call light in reach. Pulse ox on. NIBP on. Door closed. Noise minimized. 11:09 Assist provider with pelvic exam: Performed by Karson Olmstead MD Patient tolerated well. tr6 11:11 Patient did not have IV access during this emergency room visit. tr6 Administered Medications: 09:23 Drug: Pyridium (phenazopyridine) 200 mg Route: PO; tr6 10:15 Follow up: Response: No adverse reaction ph 09:23 Drug: traMADol 50 mg Route: PO; tr6 10:15 Follow up: Response: No adverse reaction ph Outcome: 10:40 Discharge ordered by . kdr 11:11 Discharged to home ambulatory. tr6 11:11 Condition: stable 11:11 Discharge instructions given to patient, Instructed on discharge instructions, follow up and referral plans. safe sex practices, safety practices, Demonstrated understanding of instructions, follow-up care, medications, Prescriptions given X 1. 11:12 Patient left the ED. tr6 Signatures: Karson Olmstead MD MD kdr Rivera, Nimisha Ace RN RN Christopher Levin RN RN Julee Guido RN RN tr6
--- NOTE | 2020-11-12 10:41 | EDPHYS ---
Physician Documentation [facility] Name: Zina Magana Age: 30 yrs Sex: Female : 1990 Arrival Date: 11/12/2020 Time: 07:41 Bed 30 Private MD: ED Physician Karson Olmstead HPI: 11/12 10:28 This 30 yrs old Female presents to ER via Ambulatory with complaints of kdr Urinary Problem. 10:28 The patient presents with urinary symptoms, dysuria, frequency, hesitancy, urgency. kdr Onset: The symptoms/episode began/occurred gradually, 1 week(s) ago. Modifying factors: The symptoms are alleviated by nothing, the symptoms are aggravated by urinating. Associated signs and symptoms: Pertinent positives: dysuria, urinary frequency. Severity of symptoms: At their worst the symptoms were severe, just prior to arrival, in the emergency department the symptoms are unchanged. The patient has experienced similar episodes in the past, a few times. The patient has been recently seen by a physician: Has been seen several times for the same problem at [place] and [facility]. Continues to have pain with urination. Has been on abx and Diflucan. . 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 - Social history:: Smoking status: Patient denies any tobacco usage or history of. ROS: 10:28 Constitutional: Negative for fever, chills, and weight loss, Eyes: Negative for injury, kdr pain, redness, and discharge, ENT: Negative for injury, pain, and discharge, Neck: Negative for injury, pain, and swelling, Cardiovascular: Negative for chest pain, palpitations, and edema, Respiratory: Negative for shortness of breath, cough, wheezing, and pleuritic chest pain, Abdomen/GI: Negative for abdominal pain, nausea, vomiting, diarrhea, and constipation, Back: Negative for injury and pain, MS/Extremity: Negative for injury and deformity, Skin: Negative for injury, rash, and discoloration, Neuro: Negative for headache, weakness, numbness, tingling, and seizure activity. Psych: Negative for depression, anxiety, suicide ideation, homicidal ideation, and hallucinations, Allergy/Immunology: Negative for hives, rash, and allergies, Endocrine: Negative for neck swelling, polydipsia, polyuria, polyphagia, and marked weight changes, Hematologic/Lymphatic: Negative for swollen nodes, abnormal bleeding, and unusual bruising. 10:28 : Positive for urinary symptoms, burning with urination, difficulty urinating. Exam: 10:28 Constitutional: This is a well developed, well nourished patient who is awake, alert, kdr and in no acute distress. Head/Face: Normocephalic, atraumatic. Eyes: Pupils equal round and reactive to light, extra-ocular motions intact. Lids and lashes normal. Conjunctiva and sclera are non-icteric and not injected. Cornea within normal limits. Periorbital areas with no swelling, redness, or edema. Neck: Trachea midline, no thyromegaly or masses palpated, and no cervical lymphadenopathy. Supple, full range of motion without nuchal rigidity, or vertebral point tenderness. No Meningismus. Chest/axilla: Normal chest wall appearance and motion. Nontender with no deformity. No lesions are appreciated. Cardiovascular: Regular rate and rhythm with a normal S1 and S2. No gallops, murmurs, or rubs. Normal PMI, no JVD. No pulse deficits. Respiratory: Lungs have equal breath sounds bilaterally, clear to auscultation and percussion. No rales, rhonchi or wheezes noted. No increased work of breathing, no retractions or nasal flaring. Abdomen/GI: Soft, non-tender, with normal bowel sounds. No distension or tympany. No guarding or rebound. No evidence of tenderness throughout. Back: No spinal tenderness. No costovertebral tenderness. Full range of motion. Skin: Warm, dry with normal turgor. Normal color with no rashes, no lesions, and no evidence of cellulitis. MS/ Extremity: Pulses equal, no cyanosis. Neurovascular intact. Full, normal range of motion. Neuro: Awake and alert, GCS 15, oriented to person, place, time, and situation. Cranial nerves II-XII grossly intact. Motor strength 5/5 in all extremities. Sensory grossly intact. Cerebellar exam normal. Normal gait. Psych: Awake, alert, with orientation to person, place and time. Behavior, mood, and affect are within normal limits. Vital Signs: 07:49 BP 131 / 75; Pulse 80; Resp 17 S; Temp 97.6(TE); Pulse Ox 97% on R/A; Weight 107.5 kg jd3 (R); Height 5 ft. 2 in. (157.48 cm) (R); Pain 10/10; 09:00 BP 127 / 89; Pulse 78; Resp 18; Pulse Ox 98% on R/A; ph 10:00 BP 128 / 90; Pulse 76; Resp 16; Temp 97.9; Pulse Ox 99% on R/A; ph 07:49 Body Mass Index 43.35 (107.50 kg, 157.48 cm) jd3 MDM: 10:28 Data reviewed: vital signs, nurses notes, lab test result(s). Counseling: I had a kdr detailed discussion with the patient and/or guardian regarding: the historical points, exam findings, and any diagnostic results supporting the discharge/admit diagnosis, lab results, radiology results. Response to treatment: the patient's symptoms have mildly improved after treatment. Special discussion: I discussed with the patient/guardian in detail that at this point there is no indication for admission to the hospital. It is understood, however, that if the symptoms persist or worsen the patient needs to return immediately for re-evaluation. 10:40 Patient medically screened. kdr 11/12 09:27 Order name: Urine Dipstick-Ancillary [facility] 11/12 08:50 Order name: Urine Dipstick-Ancillary (obtain specimen); Complete Time: 09:27 kdr Administered Medications: 09:23 Drug: Pyridium (phenazopyridine) 200 mg Route: PO; tr6 10:15 Follow up: Response: No adverse reaction ph 09:23 Drug: traMADol 50 mg Route: PO; tr6 10:15 Follow up: Response: No adverse reaction ph Disposition: 11/12/20 10:40 Discharged to Home. Impression: Urinary tract infection, site not specified, Periurethral irritation, fungal infection. - Condition is Stable. - Discharge Instructions: Urinary Tract Infection, Adult, [id number]. - Prescriptions for Lidocaine Viscous - Apply to affected area 1 application by TOPICAL route 3-4 times daily As needed; 2 tube. - Medication Reconciliation Form, Thank You Letter, Antibiotic Education, Work release form form. - Follow up: Private Physician; When: 2 - 3 days; Reason: If symptoms return, Further diagnostic work-up, Recheck today's complaints, Continuance of care, Re-evaluation by your physician. - Problem is an ongoing problem. - Symptoms have improved. - Notes: Continue your current medications until completed including the Diflucan Signatures: Dispatcher [employer] EDAZ Karson Olmstead MD MD kdr Christopher Ruffin RN RN jd3 Julee Chambers RN RN tr6 Nimisha Magana RN ph Corrections: (The following items were deleted from the chart) 11:12 10:40 11/12/2020 10:40 Discharged to Home. Impression: Urinary tract infection, site tr6 not specified; Periurethral irritation, fungal infection. Condition is Stable. Forms are Medication Reconciliation Form, Thank You Letter, Antibiotic Education, Prescription Opioid Use. Follow up: Private Physician; When: 2 - 3 days; Reason: If symptoms return, Further diagnostic work-up, Recheck today's complaints, Continuance of care, Re-evaluation by your physician. Problem is an ongoing problem. Symptoms have improved. kdr
[2020-11-12 11:24] VITALS: BP 131/75; TEMP 97.6; O2SAT 97
== END 2020-11-12 11:12 | disposition home or self-care (01) ==
LOC: ER 07:37
DX: N39.0 Urinary tract infection, site not specified (principal); B49 Unspecified mycosis; E03.9 Hypothyroidism, unspecified; F41.9 Anxiety disorder, unspecified; F32.9 Major depressive disorder, single episode, unspecified
CPT/HCPCS: 81003; 99284

== ENCOUNTER 2020-11-14 20:14 | Emergency (ER) | payer BC ==
--- OUTSIDE RECORDS SUMMARY | 2020-11-14 20:17 | XMS REPORT | Continuity of Care Document ---
:1990 Author Organization [facility] t Address [address] [place] [address] Care Team Providers Name Role Phone Diana [...] Facility Department ID 2020-11-06 2020-11-07 Emergency Charles NHMARCOS [id number] 20:52:00 01:33:00 Mishel Lincoln [id number] [place] [id number] [place] [id number] Results This patient has no known results.
[2020-11-14 21:36] LABS: Absolute Lymphocytes (CBC) 2.4 K/uL (0.7-4.9); Basophils % 0.5 % (0-1.3); Hematocrit 38.3 % (36.0-45.0); Lymphocytes % 22.3 % (15.3-44.8); MPV 7.8 fL (7.6-11.3); RBC Red Blood Cell Count 4.54 M/uL (3.86-4.86)
[2020-11-14 21:49] LABS: Albumin 3.8 g/dL (3.4-5.0); Bilirubin Direct 0.2 mg/dL (0-0.2); Bilirubin Total 0.9 mg/dL (0.2-1.0); Potassium 3.5 mmol/L (3.5-5.1); Protein, Total 8.2 g/dL (6.4-8.2)
[2020-11-14] MEDS ORDERED: MORPHINE 4 MG/ML SYR ONE (22:06)
[2020-11-14 22:52] LABS: Urine Blood Negative (Negative); Urine Glucose Trace (Negative); Urine Protein 1+ (Negative); Urine Specific Gravity 1.015 (1.005-1.030)
--- NOTE | 2020-11-15 00:17 | ER ---
Nurse's Notes [facility] Name: Zina Magana Age: 30 yrs Sex: Female : 1990 Arrival Date: 11/14/2020 Time: 20:18 Bed 7 Private MD: Diagnosis: Dysuria;Urinary tract infection, site not specified Presentation: 11/14 20:41 Chief complaint: Patient states: she was here yesterday for urinary retention and is bb back today she has not been able to urinate since this morning. Coronavirus screen: At this time, the client does not indicate any symptoms associated with coronavirus-19. Ebola Screen: No symptoms or risks identified at this time. Initial Sepsis Screen: Does the patient meet any 2 criteria? No. Patient's initial sepsis screen is negative. Does the patient have a suspected source of infection? No. Patient's initial sepsis screen is negative. Risk Assessment: Do you want to hurt yourself or someone else? Patient reports no desire to harm self or others. Onset of symptoms was November 14, 2020. 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 - Social history:: Smoking status: Patient denies any tobacco usage or history of. Patient/guardian denies using alcohol, street drugs. Screenin:00 Abuse screen: Denies threats or abuse. Nutritional screening: No deficits noted. jb4 Tuberculosis screening: No symptoms or risk factors identified. Fall Risk None identified. Assessment: 20:57 General: Appears in no apparent distress. uncomfortable, Behavior is calm, cooperative, jb4 appropriate for age. Pain: Complains of pain in suprapubic area Pain does not radiate. Pain currently is 4 out of 10 on a pain scale. Neuro: Level of Consciousness is awake, alert, obeys commands, Oriented to person, place, time, situation. Cardiovascular: Patient's skin is warm and dry. Respiratory: Airway is patent Respiratory effort is even, unlabored, Respiratory pattern is regular, symmetrical. GI: No signs and/or symptoms were reported involving the gastrointestinal system. : Reports inability to void. EENT: No signs and/or symptoms were reported regarding the EENT system. Derm: Skin is intact, Skin is pink, warm \T\ dry. Musculoskeletal: Circulation, motion, and sensation intact. Range of motion: intact in all extremities. 21:45 Reassessment: Assisting Provider with pelvic exam, patient reports discomfort; Verbal lp1 order for Morphine 4mg IV now. 21:59 Reassessment: Patient appears in no apparent distress at this time. Patient and/or jb4 family updated on plan of care and expected duration. Pain level reassessed. Patient is alert, oriented x 3, equal unlabored respirations, skin warm/dry/pink. 23:00 Reassessment: Patient appears in no apparent distress at this time. Patient and/or jb4 family updated on plan of care and expected duration. Pain level reassessed. Patient is alert, oriented x 3, equal unlabored respirations, skin warm/dry/pink. 11/15 00:54 Reassessment: Patient appears in no apparent distress at this time. Patient and/or jb4 family updated on plan of care and expected duration. Pain level reassessed. Patient is alert, oriented x 3, equal unlabored respirations, skin warm/dry/pink. Vital Signs: 11/14 20:41 BP 134 / 80; Pulse 87; Resp 18 S; Temp 97.9(O); Pulse Ox 98% on R/A; Weight 106.59 kg bb (R); Height 5 ft. 2 in. (157.48 cm) (R); Pain 4/10; 22:25 BP 123 / 79; Pulse 81; Resp 16; Pulse Ox 96% on R/A; jb4 22:45 BP 129 / 81; Pulse 65; Resp 16; Pulse Ox 96% on R/A; jb4 23:45 BP 120 / 84; Pulse 72; Resp 18; Pulse Ox 94% on R/A; jb4 11/15 00:30 BP 122 / 88; Pulse 93; Resp 16; Pulse Ox 97% on R/A; jb4 11/14 20:41 Body Mass Index 42.98 (106.59 kg, 157.48 cm) ED Course: 11/14 20:18 Patient arrived in ED. cf2 20:36 Mir Tse PA is PHCP. keiry 20:36 Jackson Sanders MD is Attending Physician. keiry 20:36 Alexis Menjivar, RN is Primary Nurse. jb4 20:43 Triage completed. bb 20:44 Arm band placed on Patient placed in an exam room, on a stretcher, on pulse oximetry. bb 21:00 Patient has correct armband on for positive identification. Bed in low position. Call jb4 light in reach. Side rails up X 1. Pulse ox on. NIBP on. 21:15 Inserted saline lock: 20 gauge in right antecubital area, using aseptic technique. oe Blood collected. 21:45 Assist provider with pelvic exam: Set up pelvic tray. Performed by Mir HENNING lp Specimens sent to lab. Patient tolerated. 22:00 Torres cath inserted, using sterile technique, 16 Fr., by tx, to gravity drainage. lp1 11/15 00:15 Cristian Martinez MD is Referral Physician. [facility] 00:55 IV discontinued, intact, bleeding controlled, No redness/swelling at site. Pressure jb4 dressing applied. Administered Medications: 11/14 21:45 Drug: morphine 4 mg Route: IVP; Site: right antecubital; lp1 22:15 Follow up: Response: No adverse reaction; Marked relief of symptoms; Pain is decreased jb4 11/15 00:40 Drug: Rocephin (cefTRIAXone) 1 grams Route: IV; Rate: calculated rate; Site: right jb4 antecubital; 00:56 Follow up: Response: No adverse reaction; IV Status: Completed infusion jb4 00:40 Drug: AZITHromycin 1 grams Route: PO; jb4 00:57 Follow up: Response: No adverse reaction jb4 Outcome: 00:16 Discharge ordered by . [facility] 00:55 Discharged to home ambulatory. jb4 00:55 Condition: stable 00:55 Discharge instructions given to patient, Instructed on discharge instructions, follow up and referral plans. medication usage, Demonstrated understanding of instructions, follow-up care, medications, Prescriptions given X 1. 00:57 Patient left the ED. jb4 Signatures: Mir Tse PA PA jmm Ballard Aliza, RN RN bb Rosy Gracia RN RN lp1 Alexis Menjivar RN RN jb4 Thierno Macias Celesta 2
--- NOTE | 2020-11-15 00:17 | EDPHYS ---
Physician Documentation [facility] Name: Zina Magana Age: 30 yrs Sex: Female : 1990 Arrival Date: 11/14/2020 Time: 20:18 Bed 7 Private MD: ED Physician Jackson Sanders HPI: 11/14 20:44 This 30 yrs old Female presents to ER via Ambulatory with complaints of jmm Urinary Problem. 20:44 Onset: The symptoms/episode began/occurred gradually, 3 week(s) ago. Associated signs jmm and symptoms: Pertinent negatives: fever. Modifying factors: The patient symptoms are alleviated by nothing, the patient symptoms are aggravated by nothing. This is a 30 year old female that presents to the ED with complaints of inability to urinate. patient was initially prescribed bactrim and keflex for a uti. patient states then developing a candidal infection. was seen yesterday due to inability to urinate. bonner placed. patient states she has now urinated since 7 am this morning. . 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 - Social history:: Smoking status: Patient denies any tobacco usage or history of. Patient/guardian denies using alcohol, street drugs. ROS: 20:44 Constitutional: Negative for fever, chills, and weight loss, Cardiovascular: Negative jmm for chest pain, palpitations, and edema, Respiratory: Negative for shortness of breath, cough, wheezing, and pleuritic chest pain. 20:44 : Positive for urinary symptoms. 20:44 All other systems are negative. Exam: 20:44 Constitutional: This is a well developed, well nourished patient who is awake, alert, jmm and in no acute distress. Head/Face: atraumatic. Eyes: EOMI, no conjunctival erythema appreciated ENT: Moist Mucus Membranes Neck: Trachea midline, Supple Chest/axilla: Normal chest wall appearance and motion. Cardiovascular: Regular rate and rhythm. 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 Vital Signs: 20:41 BP 134 / 80; Pulse 87; Resp 18 S; Temp 97.9(O); Pulse Ox 98% on R/A; Weight 106.59 kg bb (R); Height 5 ft. 2 in. (157.48 cm) (R); Pain 4/10; 22:25 BP 123 / 79; Pulse 81; Resp 16; Pulse Ox 96% on R/A; jb4 22:45 BP 129 / 81; Pulse 65; Resp 16; Pulse Ox 96% on R/A; jb4 23:45 BP 120 / 84; Pulse 72; Resp 18; Pulse Ox 94% on R/A; jb4 11/15 00:30 BP 122 / 88; Pulse 93; Resp 16; Pulse Ox 97% on R/A; jb4 11/14 20:41 Body Mass Index 42.98 (106.59 kg, 157.48 cm) bb MDM: 11/14 20:44 Patient medically screened. [facility] 11/15 00:13 Data reviewed: vital signs, nurses notes. Counseling: I had a detailed discussion with george the patient and/or guardian regarding: the historical points, exam findings, and any diagnostic results supporting the discharge/admit diagnosis, lab results, radiology results, the need for outpatient follow up, to return to the emergency department if symptoms worsen or persist or if there are any questions or concerns that arise at home. ED course: Patient is alert and non toxic in appearance in the ED. Due to patient complaint of dysuria. Bonner left. Advised to follow up with urology for for further evaluation. Patient understood and agrees with the plan of care. . 11/14 20:45 Order name: Basic Metabolic Panel [facility] 11/14 20:45 Order name: CBC with Diff [facility] 11/14 20:45 Order name: Hepatic Function [facility] 11/14 20:45 Order name: Lipase [facility] 11/14 20:45 Order name: Basic Metabolic Panel; Complete Time: 21:51 [facility] 11/14 20:45 Order name: CBC with Automated Diff; Complete Time: 21:51 [facility] 11/14 20:45 Order name: Liver (Hepatic) Function; Complete Time: 21:51 [facility] 11/14 20:45 Order name: Lipase; Complete Time: 21:51 [facility] 11/14 22:04 Order name: GC (GONORR/CHLAMYDIA) Probe [facility] 11/14 22:04 Order name: Wet Prep; Complete Time: 23:[address] [facility] 11/14 22:04 Order name: GC (Luis/Chl) Probe CX/URE [facility] 11/14 22:51 Order name: Urine Dipstick-Ancillary; Complete Time: 23:02 [facility] 11/14 23:16 Order name: Urine Microscopic Only [facility] 11/14 23:16 Order name: Urine Culture [facility] 11/14 20:45 Order name: IV Saline Lock; Complete Time: 22:[address] [facility] 11/14 20:45 Order name: Labs collected and sent; Complete Time: 22:[address] [facility] 11/14 20:45 Order name: Urine Dipstick-Ancillary (obtain specimen); Complete Time: 22:[address] [facility] 11/14 20:45 Order name: Bonner; Complete Time: 22:[address] [facility] 11/14 23:17 Order name: Urine Microscopic Only [facility] 11/14 23:17 Order name: Urine Culture EDMS Administered Medications: 11/14 21:45 Drug: morphine 4 mg Route: IVP; Site: right antecubital; lp1 22:15 Follow up: Response: No adverse reaction; Marked relief of symptoms; Pain is decreased jb4 11/15 00:40 Drug: Rocephin (cefTRIAXone) 1 grams Route: IV; Rate: calculated rate; Site: right jb4 antecubital; 00:56 Follow up: Response: No adverse reaction; IV Status: Completed infusion jb4 00:40 Drug: AZITHromycin 1 grams Route: PO; jb4 00:57 Follow up: Response: No adverse reaction jb4 Disposition: 11/15/20 00:16 Discharged to Home. Impression: Dysuria, Urinary tract infection, site not specified. - Condition is Stable. - Discharge Instructions: Dysuria, Urinary Tract Infection, Adult. - Prescriptions for cefpodoxime 200 mg Oral Tablet - take 1 tablet by ORAL route every 12 hours for 10 days with food; 20 tablet. - Medication Reconciliation Form, Thank You Letter, Antibiotic Education, Prescription Opioid Use form. - Work release form (11/15/20 01:19). bb - Follow up: Cristian Martinez MD; When: 2 - 3 days; Reason: Recheck today's complaints, Continuance of care, Re-evaluation by your physician. Signatures: Dispatcher [employer] EDMS Mir Tse PA PA jmm Ballard, Brenda, RN RN bb Rosy Gracia, RN RN lp1 Alexis Menjivar RN RN jb4 Corrections: (The following items were deleted from the chart) 00:57 00:16 11/15/2020 00:16 Discharged to Home. Impression: Dysuria; Urinary tract jb4 infection, site not specified. Condition is Stable. Forms are Medication Reconciliation Form, Thank You Letter, Antibiotic Education, Prescription Opioid Use. Follow up: Cristian Martinez; When: 2 - 3 days; Reason: Recheck today's complaints, Continuance of care, Re-evaluation by your physician. george
[2020-11-15 00:42] LABS: Urine Bacteria <20 /HPF (<20); Urine RBC NONE SEEN /HPF (NONE SEEN); Urine Urothelial Cells <5 /HPF (NONE SEEN)
[2020-11-15] MEDS ORDERED: AZITHROMYCIN 250 MG TAB ONE (00:53)
[2020-11-15] MEDS ORDERED: CEFTRIAXONE/SWI 1gm 1 GM/10 ML SYR ONE (00:53)
[2020-11-15 01:37] VITALS: TEMP 97.9
[2020-11-15 01:43] VITALS: BP 122/88; O2SAT 97
[2020-11-17 12:24] LABS: C.trachomatis RNA,TMA Not Detected (Not Detected)
== END 2020-11-15 00:57 | disposition home or self-care (01) ==
LOC: ER 20:14
DX: N39.0 Urinary tract infection, site not specified (principal); F41.9 Anxiety disorder, unspecified; F32.9 Major depressive disorder, single episode, unspecified; E03.9 Hypothyroidism, unspecified
CPT/HCPCS: 96365; 87088; 85025; 87086; 80048; 36415; 80076; 87210; 83690; 87590; 87490; 51702; 96375; 99284; J0696; 81003; 81015

== ENCOUNTER 2020-11-15 23:16 | Emergency (ER) | payer BC ==
--- OUTSIDE RECORDS SUMMARY | 2020-11-15 23:19 | XMS REPORT | Continuity of Care Document ---
:1990 [address] [facility] t Address [address] [place] [address] Care Team Providers Name Role Phone Diana [...] Facility Department ID 2020-11-06 2020-11-07 Emergency Charles KSMARCOS [id number] 20:52:00 01:33:00 Mishel Lincoln [id number] [place] [id number] [place] [phone] [id number] Results This patient has no known results.
[2020-11-16] MEDS ORDERED: CEFTRIAXONE 1000 MG/VIAL ONE (00:11)
[2020-11-16] MEDS ORDERED: NA CHLORIDE 0.9% 2,000 ML ONE (00:11)
[2020-11-16] MEDS ORDERED: NA CHLORIDE 0.9% 100 ML ONE (00:11)
[2020-11-16 00:32] LABS: Absolute Lymphocytes (CBC) 1.9 K/uL (0.7-4.9); Basophils % 1.1 % (0-1.3); Hematocrit 38.1 % (36.0-45.0); Lymphocytes % 17.6 % (15.3-44.8); MPV 7.9 fL (7.6-11.3); RBC Red Blood Cell Count 4.52 M/uL (3.86-4.86)
[2020-11-16 00:41] LABS: ALT/SGPT 32 U/L (12-78); AST/SGOT 20 U/L (15-37); Albumin 3.5 g/dL (3.4-5.0); Alkaline Phosphatase 73 U/L (45-117); BUN Blood Urea Nitrogen 11 mg/dL (7-18); Bicarbonate 28 mmol/L (21-32); Bilirubin Total 0.8 mg/dL (0.2-1.0); Glucose Level 105 mg/dL (74-106); Potassium 3.4 mmol/L (3.5-5.1); Sodium Level 140 mmol/L (136-145)
[2020-11-16] MEDS ORDERED: ACETAMINOPHEN 500 MG TAB ONE (01:01)
[2020-11-16] MEDS ORDERED: POTASSIUM 25 MEQ EFFERV TAB ONE (01:57)
[2020-11-16 03:31] LABS: Urine Blood Trace-intact (Negative); Urine Glucose Negative (Negative); Urine Protein Negative (Negative); Urine Specific Gravity 1.015 (1.005-1.030)
[2020-11-16] MEDS ORDERED: levoFLOXacin 750 MG TAB ONE (03:42)
--- NOTE | 2020-11-16 04:23 | ER ---
Nurse's Notes [facility] Name: Zina Magana Age: 30 yrs Sex: Female : 1990 Arrival Date: 11/15/2020 Time: 23:18 Bed 15 Private MD: Diagnosis: Fever, unspecified;Urinary tract infection, site not specified;Dizziness and giddiness;Hypokalemia Presentation: 11/15 23:20 Chief complaint: EMS states: Reports she was diagnosed with a UTI yesterday, reports ea she started feeling dizzy tonight. Coronavirus screen: At this time, the client does not indicate any symptoms associated with coronavirus-19. Ebola Screen: No symptoms or risks identified at this time. Initial Sepsis Screen: Does the patient meet any 2 criteria? No. Patient's initial sepsis screen is negative. Does the patient have a suspected source of infection? No. Patient's initial sepsis screen is negative. Risk Assessment: Do you want to hurt yourself or someone else? Patient reports no desire to harm self or others. Onset of symptoms was November 15, 2020. 23:20 Method Of Arrival: Ambulatory ea 23:20 Acuity: CLARICE 3 ea 23:22 Chief complaint: Patient states: Pt reports dx with UTI yesterday, sent home with po ad5 abx. States episode of dizziness at home with intermittent nausea. Leg bag in place at this time, pratibha colored urine noted to bag. Coronavirus screen: At this time, the client does not indicate any symptoms associated with coronavirus-19. Ebola Screen: No symptoms or risks identified at this time. Initial Sepsis Screen: Does the patient meet any 2 criteria? HR > 90 bpm. No. Patient's initial sepsis screen is negative. Initial Sepsis Screen: Does the patient have a suspected source of infection? Yes: Dysuria/Frequency/Urgency/UTI. Risk Assessment: Do you want to hurt yourself or someone else? Patient reports no desire to harm self or others. Onset of symptoms is unknown. 23:22 Method Of Arrival: EMS ad5 23:22 Acuity: CLARICE 3 ad5 Triage Assessment: 23:25 General: Appears in no apparent distress. Behavior is calm, cooperative, appropriate ad5 for age. Pain: Complains of pain in groin. Historical: - Allergies: 23:25 tylenol #3; ad5 23:27 tylenol #3; ea - Home Meds: 23:27 levothyroxine 75 mcg tab [Active]; Mirena intrauterine [Active]; Celexa Oral [Active]; ea - PMHx: 23:25 Anxiety; Depression; Hypothyroidism; ad5 23:27 Hypothyroidism; Depression; Anxiety; ea - PSHx: 23:27 None; ea - Immunization history:: Adult Immunizations unknown, Adult Immunizations up to date. - Social history:: Smoking status: unknown Smoking status: unknown. - Family history:: not pertinent. Screenin:20 Abuse screen: Denies threats or abuse. Nutritional screening: No deficits noted. ea Tuberculosis screening: No symptoms or risk factors identified. Fall Risk None identified. Assessment: 23:25 General: Appears in no apparent distress. Behavior is calm, cooperative, appropriate ad5 for age. Pain: Complains of pain in catheter insertion site. Neuro: No deficits noted. Level of Consciousness is awake, alert, obeys commands, Oriented to person, place, time, situation, Appropriate for age Moves all extremities. Gait is steady. Cardiovascular: No deficits noted. Heart tones present Capillary refill < 3 seconds Patient's skin is warm and dry. Respiratory: No deficits noted. Airway is patent Trachea midline Respiratory effort is even, unlabored, Respiratory pattern is regular, symmetrical. GI: Reports nausea. : leg bag to RLE, pratibha colored urine noted Reports burning with urination, pain with urination, urinary frequency. EENT: No deficits noted. No signs and/or symptoms were reported regarding the EENT system. Derm: No deficits noted. No signs and/or symptoms reported regarding the dermatologic system. Musculoskeletal: No deficits noted. No signs and/or symptoms reported regarding the musculoskeletal system. 11/16 00:00 Reassessment: Pt bonner catheter removed per MD orders. Pt tolerated well. ad5 00:55 Reassessment: Patient appears in no apparent distress at this time. No changes from ad5 previously documented assessment. Patient and/or family updated on plan of care and expected duration. Pain level reassessed. Patient is alert, oriented x 3, equal unlabored respirations, skin warm/dry/pink. 00:55 Reassessment: Pt c/o POWELL, MD aware, awaiting further orders. ad5 01:30 Reassessment: Pt up to restroom, ambulates independently with steady gait. Scant amount ad5 of urine provided by pt, provider informed. 03:00 Reassessment: Patient appears in no apparent distress at this time. No changes from ad5 previously documented assessment. Patient and/or family updated on plan of care and expected duration. Pain level reassessed. Pt up to restroom, ambulates independently with steady gait. Pt able to provide urine specimen for ordered labs. Patient states symptoms have improved. 04:00 Reassessment: Patient appears in no apparent distress at this time. Patient and/or ad5 family updated on plan of care and expected duration. Pain level reassessed. Patient is alert, oriented x 3, equal unlabored respirations, skin warm/dry/pink. Pt reports nausea, provider aware, awaiting further orders. Vital Signs: 11/15 23:20 BP 125 / 78; Pulse 95; Resp 18; Temp 99.2; Pulse Ox 100% ; ea 23:22 BP 125 / 78; Pulse 94; Resp 18 S; Temp 99.3(O); Pulse Ox 98% on R/A; Weight 106.59 kg; ad5 Height 5 ft. 2 in. (157.48 cm); Pain 6/10; 11/16 00:55 BP 119 / 71; Pulse 90; Resp 18 S; Pulse Ox 100% on R/A; ad5 03:30 BP 122 / 73; Pulse 87; Resp 18 S; Pulse Ox 96% on R/A; ad5 04:24 BP 136 / 94; Pulse 80; Resp 18 S; Pulse Ox 100% on R/A; ad5 11/15 23:22 Body Mass Index 42.98 (106.59 kg, 157.48 cm) ad5 ED Course: 11/15 23:18 Patient arrived in ED. ea 23:20 Patient has correct armband on for positive identification. Placed in gown. Bed in low ea position. Call light in reach. Pulse ox on. NIBP on. 23:22 Sumeet Del Valle is Primary Nurse. ad5 23:22 Triage completed. ea 23:22 Arm band placed on right wrist. Patient placed in an exam room, on a stretcher, on ea pulse oximetry. 23:24 Torin Reno MD is Attending Physician. papi 23:27 No provider procedures requiring assistance completed. Maintain EMS IV. Dressing ad5 intact. Site clean \T\ dry. Gauge \T\ site: 20g RAC. 06/08 00:08 Chest Single View XRAY In Process Unspecified. EDMS 03:07 CT Abd/Pelvis - IV Contrast Only In Process Unspecified. EDMS 04:21 Cristian Martinez MD is Referral Physician. papi 04:43 IV discontinued, intact, bleeding controlled, No redness/swelling at site. Pressure ad5 dressing applied. Administered Medications: 00:10 Drug: NS 0.9% 1000 ml Route: IV; Rate: 1 bolus; Site: right antecubital; ad5 03:32 Follow up: IV Status: Completed infusion; IV Intake: 1000ml ad5 00:10 Drug: NS 0.9% 1000 ml Route: IV; Rate: 1 bolus; Site: right antecubital; ad5 03:32 Follow up: IV Status: Completed infusion; IV Intake: 1000ml ad5 00:10 Drug: Rocephin (cefTRIAXone) 2 grams Route: IV; Rate: per protocol; Site: right ad5 antecubital; 01:52 Follow up: Response: No adverse reaction; IV Status: Completed infusion ad5 00:54 Drug: Tylenol 1000 mg Route: PO; ad5 01:52 Follow up: Response: No adverse reaction; Pain is decreased ad5 01:48 Drug: Potassium Effervescent Tablet 25 mEq Route: PO; ad5 03:31 Follow up: Response: No adverse reaction ad5 03:29 Drug: LevOfloxacin 750 mg Route: PO; ad5 04:25 Follow up: Response: No adverse reaction ad5 04:21 Drug: Zofran (Ondansetron) 4 mg Route: IVP; Site: right antecubital; ea 04:40 Follow up: Response: No adverse reaction; Nausea is decreased ad5 Intake: 03:32 IV: 1000ml; Total: 1000ml. ad5 03:32 IV: 1000ml; Total: 2000ml. ad5 Outcome: 04:22 Discharge ordered by . papi 04:42 Discharged to home ambulatory. ad5 04:42 Condition: stable 04:42 Discharge instructions given to patient, Instructed on discharge instructions, follow up and referral plans. medication usage, Demonstrated understanding of instructions, follow-up care, medications, Prescriptions given X 3. 04:44 Patient left the ED. ad5 Signatures: Dispatcher [employer] Torin Ruiz MD MD cha Antunez, Elena, RN RN ea Davidson, Andrea ad5 Corrections: (The following items were deleted from the chart) 04:42 03:00 Reassessment: Patient appears in no apparent distress at this time. No changes ad5 from previously documented assessment. Patient and/or family updated on plan of care and expected duration. Pain level reassessed. Patient states symptoms have improved. ad5
--- NOTE | 2020-11-16 04:23 | EDPHYS ---
Physician Documentation [facility] Name: Zina Magana Age: 30 yrs Sex: Female : 1990 Arrival Date: 11/15/2020 Time: 23:18 Bed 15 Private MD: ED Physician Torin Reno HPI: 11/15 23:54 This 30 yrs old Female presents to ER via EMS with complaints of Dizziness. papi 23:54 The patient presents with dizziness, generalized weakness. Onset: The symptoms/episode papi began/occurred 3 day(s) ago. Context: occurred at home. Modifying factors: The symptoms are alleviated by nothing. Associated signs and symptoms: The patient has no apparent associated signs or symptoms. Severity of symptoms: At their worst the symptoms were mild in the emergency department the symptoms are unchanged. Patient's baseline: Neuro: alert and fully oriented. The patient has experienced similar episodes in the past, a few times. Historical: - Allergies: 23:25 tylenol #3; ad5 23:27 tylenol #3; ea - Home Meds: 23:27 levothyroxine 75 mcg tab [Active]; Mirena intrauterine [Active]; Celexa Oral [Active]; ea - PMHx: 23:25 Anxiety; Depression; Hypothyroidism; ad5 23:27 Hypothyroidism; Depression; Anxiety; ea - PSHx: 23:27 None; ea - Immunization history:: Adult Immunizations unknown, Adult Immunizations up to date. - Social history:: Smoking status: unknown Smoking status: unknown. - Family history:: not pertinent. ROS: 23:54 Eyes: Negative for injury, pain, redness, and discharge, ENT: Negative for injury, papi pain, and discharge, Neck: Negative for injury, pain, and swelling, Cardiovascular: Negative for chest pain, palpitations, and edema, Respiratory: Negative for shortness of breath, cough, wheezing, and pleuritic chest pain, Abdomen/GI: Negative for abdominal pain, nausea, vomiting, diarrhea, and constipation, Back: Negative for injury and pain, : Negative for injury, bleeding, discharge, and swelling, MS/Extremity: Negative for injury and deformity, Skin: Negative for injury, rash, and discoloration, Neuro: Negative for headache, weakness, numbness, tingling, and seizure, Psych: Negative for depression, anxiety, suicide ideation, homicidal ideation, and hallucinations, Allergy/Immunology: Negative for hives, rash, and allergies, Endocrine: Negative for neck swelling, polydipsia, polyuria, polyphagia, and marked weight changes, Hematologic/Lymphatic: Negative for swollen nodes, abnormal bleeding, and unusual bruising. 23:54 Constitutional: Positive for fever. Exam: 23:54 Constitutional: This is a well developed, well nourished patient who is awake, alert, papi and in no acute distress. Head/Face: Normocephalic, atraumatic. Eyes: Pupils equal round and reactive to light, extra-ocular motions intact. Lids and lashes normal. Conjunctiva and sclera are non-icteric and not injected. Cornea within normal limits. Periorbital areas with no swelling, redness, or edema. ENT: Nares patent. No nasal discharge, no septal abnormalities noted. Tympanic membranes are normal and external auditory canals are clear. Oropharynx with no redness, swelling, or masses, exudates, or evidence of obstruction, uvula midline. Mucous membranes moist. Neck: Trachea midline, no thyromegaly or masses palpated, and no cervical lymphadenopathy. Supple, full range of motion without nuchal rigidity, or vertebral point tenderness. No Meningismus. Chest/axilla: Normal chest wall appearance and motion. Nontender with no deformity. No lesions are appreciated. Cardiovascular: Regular rate and rhythm with a normal S1 and S2. No gallops, murmurs, or rubs. Normal PMI, no JVD. No pulse deficits. Respiratory: Lungs have equal breath sounds bilaterally, clear to auscultation and percussion. No rales, rhonchi or wheezes noted. No increased work of breathing, no retractions or nasal flaring. Abdomen/GI: Soft, non-tender, with normal bowel sounds. No distension or tympany. No guarding or rebound. No evidence of tenderness throughout. Back: No spinal tenderness. No costovertebral tenderness. Full range of motion. Skin: Warm, dry with normal turgor. Normal color with no rashes, no lesions, and no evidence of cellulitis. MS/ Extremity: Pulses equal, no cyanosis. Neurovascular intact. Full, normal range of motion. Neuro: Awake and alert, GCS 15, oriented to person, place, time, and situation. Cranial nerves II-XII grossly intact. Motor strength 5/5 in all extremities. Sensory grossly intact. Cerebellar exam normal. Normal gait. Vital Signs: 23:20 BP 125 / 78; Pulse 95; Resp 18; Temp 99.2; Pulse Ox 100% ; ea 23:22 BP 125 / 78; Pulse 94; Resp 18 S; Temp 99.3(O); Pulse Ox 98% on R/A; Weight 106.59 kg; ad5 Height 5 ft. 2 in. (157.48 cm); Pain 6/10; 11/16 00:55 BP 119 / 71; Pulse 90; Resp 18 S; Pulse Ox 100% on R/A; ad5 03:30 BP 122 / 73; Pulse 87; Resp 18 S; Pulse Ox 96% on R/A; ad5 04:24 BP 136 / 94; Pulse 80; Resp 18 S; Pulse Ox 100% on R/A; ad5 11/15 23:22 Body Mass Index 42.98 (106.59 kg, 157.48 cm) ad5 MDM: 11/15 23:24 Patient medically screened. [facility] 23:58 Differential diagnosis: generalized weakness. Data reviewed: vital signs, nurses notes, [facility] lab test result(s), radiologic studies, plain films. Data interpreted: residential monitor: rate is 94 beats/min, rhythm is regular, Pulse oximetry: on room air is 98 %. Test interpretation: by ED physician or midlevel provider: plain radiologic studies. Counseling: I had a detailed discussion with the patient and/or guardian regarding: lab results, radiology results. 11/15 23:44 Order name: CBC with Diff [facility] 11/15 23:44 Order name: Comprehensive Metabolic Panel; Complete Time: 01:10 [facility] 11/15 23:44 Order name: Blood Culture Adult (2) [facility] 11/15 23:44 Order name: Lactate; Complete Time: 01:10 [facility] 11/15 23:44 Order name: Urine Culture [facility] 11/15 23:44 Order name: CBC with Automated Diff; Complete Time: 01:10 EDMS 11/15 23:44 Order name: Chest Single View XRAY [facility] 11/15 23:44 Order name: CT Abd/Pelvis - IV Contrast Only [facility] 11/16 02:12 Order name: Test, Serum; Complete Time: 02:44 11/16 03:31 Order name: Urine Dipstick-Ancillary; Complete Time: 04:21 EDMS 11/15 23:44 Order name: Urine Dipstick-Ancillary (obtain specimen); Complete Time: 03:37 papi 11/15 23:50 Order name: Misc. Order: remove bonner; Complete Time: 00:30 [facility] Administered Medications: 11/16 00:10 Drug: NS 0.9% 1000 ml Route: IV; Rate: 1 bolus; Site: right antecubital; ad5 03:32 Follow up: IV Status: Completed infusion; IV Intake: 1000ml ad5 00:10 Drug: NS 0.9% 1000 ml Route: IV; Rate: 1 bolus; Site: right antecubital; ad5 03:32 Follow up: IV Status: Completed infusion; IV Intake: 1000ml ad5 00:10 Drug: Rocephin (cefTRIAXone) 2 grams Route: IV; Rate: per protocol; Site: right ad5 antecubital; 01:52 Follow up: Response: No adverse reaction; IV Status: Completed infusion ad5 00:54 Drug: Tylenol 1000 mg Route: PO; ad5 01:52 Follow up: Response: No adverse reaction; Pain is decreased ad5 01:48 Drug: Potassium Effervescent Tablet 25 mEq Route: PO; ad5 03:31 Follow up: Response: No adverse reaction ad5 03:29 Drug: LevOfloxacin 750 mg Route: PO; ad5 04:25 Follow up: Response: No adverse reaction ad5 04:21 Drug: Zofran (Ondansetron) 4 mg Route: IVP; Site: right antecubital; ea 04:40 Follow up: Response: No adverse reaction; Nausea is decreased ad5 Disposition: 11/16/20 04:22 Discharged to Home. Impression: Fever, unspecified, Urinary tract infection, site not specified, Dizziness and giddiness, Hypokalemia. - Condition is Stable. - Discharge Instructions: Potassium Content of Foods, Dizziness, Dysuria, Fever, Adult, Urinary Tract Infection, Adult, Urinary Tract Infection, Adult, [id number], Hypokalemia, Dizziness, [id number]. - Prescriptions for Levaquin 500 mg Oral Tablet - take 1 tablet by ORAL route once daily for 7 days; 7 tablet. Bactrim DS 800- 160 mg Oral Tablet - take 1 tablet by ORAL route every 12 hours for 3 days; 6 tablet. Zofran 4 mg Oral Tablet - take 1 tablet by ORAL route every 12 hours As needed; 20 tablet. - Medication Reconciliation Form, Thank You Letter, Antibiotic Education, Prescription Opioid Use form. - Follow up: Private Physician; When: 2 - 3 days; Reason: Recheck today's complaints, Continuance of care, Re-evaluation by your physician. Follow up: Cristian Martinez; When: 2 - 3 days; Reason: Recheck today's complaints, Re-evaluation by your physician. - Problem is new. - Symptoms have improved. Signatures: Dispatcher [employer] EDRI Torin Reno MD MD cha Attema, Lee, CASTER OPERATOR-C CASTER OPERATOR-Cla1 Mar Mcguire, RN RN Sumeet Carpio ad5 Corrections: (The following items were deleted from the chart) 03:37 11/15 23:44 Urine Test ordered. papi sanchez 11/16 04:44 04:22 11/16/2020 04:22 Discharged to Home. Impression: Fever, unspecified; Urinary ad5 tract infection, site not specified; Dizziness and giddiness; Hypokalemia. Condition is Stable. Discharge Instructions: Dizziness, Dysuria, Fever, Adult, Urinary Tract Infection, Adult, Urinary Tract Infection, Adult, [id number], Dizziness, [id number], Potassium Content of Foods, Hypokalemia. Prescriptions for Levaquin 500 mg Oral Tablet - take 1 tablet by ORAL route once daily for 7 days; 7 tablet. and Forms are Medication Reconciliation Form, Thank You Letter, Antibiotic Education, Prescription Opioid Use. Follow up: Private Physician; When: 2 - 3 days; Reason: Recheck today's complaints, Continuance of care, Re-evaluation by your physician. Follow up: Cristian Martinez; When: 2 - 3 days; Reason: Recheck today's complaints, Re-evaluation by your physician. Problem is new. Symptoms have improved. papi
[2020-11-16] MEDS ORDERED: ONDANSETRON 4 MG/2 ML VIAL ONE (04:39)
[2020-11-16 04:54] VITALS: TEMP 99.3
[2020-11-16 04:58] VITALS: BP 136/94; O2SAT 100
--- NOTE | 2020-11-16 07:15 | RAD REPORT ---
EXAM DESCRIPTION: RAD - Chest Single View - 11/16/2020 12:05 am CLINICAL HISTORY: COUGH COMPARISON: Portable August 2013 TECHNIQUE: AP portable chest image was obtained 11/16/2020 12:05 am . FINDINGS: Lung volumes are low but lung blankenship are clear. No failure or volume overload findings. He art size and vasculature within normal range for body habitus and portable film limitations. No measu rable pleural effusion and no pneumothorax. No acute bony abnormality seen. No acute aortic findings suspected. IMPRESSION: No acute cardiopulmonary process. No significant change from comparison study.
--- NOTE | 2020-11-16 13:01 | RAD REPORT ---
EXAM DESCRIPTION: CT - Abdomen Pelvis W Contrast - 11/16/2020 6:51 am CLINICAL HISTORY: Dysuria COMPARISON: None Available. TECHNIQUE: CT of the abdomen and pelvis performed following IV administration of iodinated contras t. This exam was performed according to our departmental dose-optimization program, which includes au tomated exposure control, adjustment of the mA and/or kV according to patient size and/or use of iter ative reconstruction technique. FINDINGS: Lung Bases: The visualized lung bases are clear. Bones: Mild endplate spondylosis. Abdomen: Liver: The liver has normal size and density. No intrahepatic biliary dilatation. Gallbladder: No calcified gallstones. Spleen, Pancreas, and Adrenal Glands: The spleen, pancreas, and adrenal glands are unremarkable. Kidneys: No hydronephrosis or obstructing calculus. Bilateral nonobstructing nephrolithiasis. Vasculature: The aorta and IVC have normal caliber and position. The portal vein is patent. The pro ximal visceral and renal arteries are patent. Stomach: The stomach and duodenum have normal course. Other: No free intraperitoneal air. No free fluid or lymphadenopathy. Tiny fat-containing umbilic al hernia. Pelvis: Bladder: Small focus of air in the urinary bladder. Urinary bladder is otherwise unremarkable. Bowel: No dilated loops of large or small bowel. Appendix: Normal appendix. Pelvis: IUD in the uterus. IMPRESSION: 1. No acute inflammatory or obstructive process identified. 2. Bilateral nonobstructing nephrolithiasis. 3. Small focus of air in the urinary bladder. This may be related to recent catheterization. Electronically signed by: David Jolley 11/16/2020 3:50 AM CDT Due to temporary technical issues with the PACS/Fluency reporting system, reports are being signed by the in house radiologists without review as a courtesy to insure prompt reporting. The interpreting radiologist is fully responsible for the content of the report.
== END 2020-11-16 04:44 | disposition home or self-care (01) ==
LOC: ER 23:16
DX: N39.0 Urinary tract infection, site not specified (principal); E87.6 Hypokalemia; R42 Dizziness and giddiness; F41.8 Other specified anxiety disorders; E03.9 Hypothyroidism, unspecified; Z88.5 Allergy status to narcotic agent
CPT/HCPCS: 87040 ×2; 87088; 85025; 87086; 36415; 84703; 83605; 81003; 80053; 74177; 71045; Q9967; J2405; 96361; 96365; 96366; 96375; 99284